=== PATIENT | female | born 1955 | race African-American/Black ===

== ENCOUNTER → 2016-04-15 | Day surgery (SDC) | payer OTHER | END | disposition home or self-care (01) | LOC: FMAMMOTONE 11:48 | PROVIDERS: ATTEND Surgery | PROC: 0HBU3ZX Excision of Left Breast, Percutaneous Approach, Diagnostic (ICD-10-PCS; principal; 2016-04-15) | DX: R92.1 Mammographic calcification found on diagnostic imaging of breast (principal); Z53.8 Procedure and treatment not carried out for other reasons | CPT/HCPCS: 19081 ==

== ENCOUNTER 2016-07-31 09:11 | Inpatient (IN) | payer OTHER ==
[2016-07-31 09:33] VITALS: BMI 17.9
--- NOTE | 2016-07-31 10:05 | HP ---
CIWA Score - CIWA Score Nausea/Vomitin-Mild Nausea/No Vomiting Muscle Tremors: 4-Moderate,w/Arms Extend Anxiety: 4-Mod. Anxious/Guarded Agitation: 1-Slight > Activity Paroxysmal Sweats: 1-Minimal Palms Moist Orientation: 1-Uncertain about Date Tacttile Disturbances: 1-Very Mild Itch/Numbness Auditory Disturbances: 1-Very Mild Visual Disturbances: 1-Very Mild Sensitivity Headache: 1-Very Mild CIWA-Ar Total Score: 16 Admission ROS BHS - HPI Chief Complaint: I want to stop, I can't stop on my own - I have too much shaking, I don't want that life anymore Allergies/Adverse Reactions: Allergies Allergy/AdvReac Type Severity Reaction Status Date / Time No Known Allergies Allergy Verified 01/17/16 13:07 History of Present Illness: 61 yo woman here for detox from alcohol - denies seizures but is shakey upon waking each morning. Last detox here in 2013, previous history of rehab. Exam Limitations: Clinical Condition - Ebola screening Have you traveled outside of the country in the last 21 days: No Have you had contact with anyone from an Ebola affected area: No Have you been sick,other than usual withdrawal symptoms: No Do you have a fever: No - Review of Systems Constitutional: Loss of Appetite, Night Sweats EENT: reports: No Symptoms Reported Respiratory: reports: No Symptoms reported Cardiac: reports: No Symptoms Reported GI: reports: Poor Appetite, Indigestion : reports: Frequency Musculoskeletal: reports: No Symptoms Reported Integumentary: reports: Dryness Neuro: reports: Headache, Tremors Endocrine: reports: No Symptoms Reported Hematology: reports: No Symptoms Reported Psychiatric: reports: Judgement Intact, Mood/Affect Appropiate, Anxious Other Systems: Reviewed and Negative Patient History - Patient Medical History Hx Anemia: Yes Hx Asthma: No Hx Chronic Obstructive Pulmonary Disease (COPD): No Hx Cancer: No Hx Cardiac Disorders: No Hx Congestive Heart Failure: No Hx Hypertension: No Hx Hypercholesterolemia: No Hx Pacemaker: No HX Cerebrovascular Accident: No Hx Seizures: No Hx Dementia: No Hx Diabetes: No Hx Gastrointestinal Disorders: Yes (gerd) Hx Liver Disease: Yes (fatty liver) Hx Genitourinary Disorders: No Hx Renal Disease (ESRD): No Hx Thyroid Disease: No Hx Human Immunodeficiency Virus (HIV): No Hx Hepatitis C: No Hx Depression: Yes (on meds) - Patient Surgical History Past Surgical History: Yes Hx Neurologic Surgery: No Hx Cataract Extraction: No Hx Cardiac Surgery: No Hx Lung Surgery: No Hx Breast Surgery: No Hx Breast Biopsy: No Hx Abdominal Surgery: Yes (exp lap) Hx Appendectomy: No Hx Cholecystectomy: No Hx Genitourinary Surgery: No Hx Section: No Hx Orthopedic Surgery: No Hx Hysterectomy: No Other Surgical History: nasal polyps removed 1989 Anesthesia Reaction: No - PPD History Previous Implant?: Yes Documented Results: Negative w/o proof Implanted On Prior [facility] Admission?: No PPD to be Administered?: Yes - Reproductive History Patient is a Female of Child Bearing Age (11 -55 yrs old): No - Smoking Cessation Smoking history: Current every day smoker Have you smoked in the past 12 months: Yes Aproximately how many cigarettes per day: 20 Initiated information on smoking cessation: Yes 'Breaking Loose' booklet given: 07/31/16 (give on floor) - Substance & Tx. History Hx Alcohol Use: Yes Hx Substance Use: No Substance Use Type: Alcohol Hx Substance Use Treatment: Yes (detox, rehab outpatient) - Substances Abused Alcohol Route: Oral Frequency: Daily Amount used: four 18 oz beers Age of first use: 15 Date of Last Use: 07/31/16 Family Disease History - Family Disease History Family Disease History: Heart Disease: Father ( - MS, etoh hx), Other: Father, Mother (, AIDS, drug user), Brother (one brother alive, healthy) , Sister (, AIDS, IVDU) Admission Physical Exam S - Vital Signs Vital Signs: Vital Signs - 24 hr 07/31/16 09:29 Temperature 97.1 F L Pulse Rate 91 H Respiratory 16 Rate Blood Pressure 126/79 - Physical General Appearance: Yes: Appropriately Dressed, Mild Distress, Thin HEENTM: Yes: Hearing grossly Normal, Normocephalic, Normal Voice, Pharynx Normal Respiratory: Yes: Normal Breath Sounds, No Respiratory Distress Neck: Yes: No masses,lesions,Nodules, Supple Breast: Yes: Breast Exam Deferred Cardiology: Yes: Regular Rhythm, Regular Rate Abdominal: Yes: Flat, Soft Genitourinary: Yes: Frequency Back: Yes: Normal Inspection Musculoskeletal: Yes: full range of Motion, Gait Steady Extremities: Yes: Normal Inspection, Normal Range of Motion Neurological: Yes: Alert, Normal Mood/Affect, Normal Response Integumentary: Yes: Normal Color, Dry, Warm Lymphatic: Yes: Within Normal Limits - Diagnostic (1) Alcohol dependence with uncomplicated withdrawal Current Visit: Yes Status: Chronic (2) GERD (gastroesophageal reflux disease) Current Visit: Yes Status: Chronic Qualifiers: Esophagitis presence: esophagitis presence not specified Qualified Code(s): K21.9 - Gastro-esophageal reflux disease without esophagitis (3) Weight decrease Current Visit: Yes Status: Chronic (4) Fatty liver Current Visit: Yes Status: Chronic Cleared for Admission [facility] - Detox or Rehab [facility] Level of Care: Medically Managed Detox Regimen/Protocol: Librium [facility] Breath Alcohol Content Breath Alcohol Content: 0.239 Urine Pregancy Test - Result Urine Test Results: Negative- NO Line Present Urine Drug Screen - Results Drug Screen Negative: Yes
[2016-07-31] MEDS ORDERED: MENTHOL/PHENOL 1 EACH UD MM PRN (10:17)
[2016-07-31] MEDS ORDERED: P-EPHED 60MG/TRIPROLIDI 2.5MG TABLET PO PRN (10:17)
[2016-07-31] MEDS ORDERED: ACETAMINOPHEN 325 MG TABLET (FP) PO PRN (10:17)
[2016-07-31] MEDS ORDERED: MAGNESIUM CITRATE 300 ML BOTTLE PO PRN (10:17)
[2016-07-31] MEDS ORDERED: IBUPROFEN 400 MG TABLET (FP) PO PRN (10:17)
[2016-07-31] MEDS ORDERED: MAG HYDROX/AL HYDROX/SIMETH 30 ML UNIT-DOSE CUP PO PRN (10:17)
[2016-07-31] MEDS ORDERED: chlordiazePOXIDE HCL 25 MG CAPSULE PO PRN (10:17)
[2016-07-31] MEDS ORDERED: chlordiazePOXIDE HCL 25 MG CAPSULE PO ONE (10:30)
[2016-07-31] MEDS ORDERED: guaiFENesin/D-METHORPHAN HB 10 ML UNIT-DOSE CUPS PO PRN (10:33)
[2016-07-31] MEDS ORDERED: hydrOXYzine PAMOATE 25 MG CAPSULE (FP) PO PRN (10:34)
[2016-07-31] MEDS ORDERED: MAGNESIUM HYDROX 2400MG/30ML ORAL SUSPENSION 30 ML CUP PO PRN (10:52)
[2016-07-31] MEDS: NICOTINE 21 MG/24 HOURS TOPICAL PATCH TD SCH (12:34)
[2016-07-31] MEDS: chlordiazePOXIDE HCL 25 MG CAPSULE PO SCH ×2 (17:36→22:11)
[2016-07-31 18:27] LABS: URINE APPEARANCE SLCLOUDY; URINE BILIRUBIN NEGATIVE (NEGATIVE); URINE COLOR AMBER; URINE GLUCOSE (UA) NEGATIVE (NEGATIVE); URINE KETONE NEGATIVE (NEGATIVE); URINE NITRITE NEGATIVE (NEGATIVE); URINE UROBILINOGEN 4.0 E.U/dl E.U./dl (0.2-1.0)
[2016-07-31 18:30] LABS: URINE BLOOD 1+ (NEGATIVE); URINE LEUK ESTERASE 2+ (NEGATIVE); URINE PROTEIN 1+ (NEGATIVE)
[2016-07-31 18:32] LABS: URINE BACTERIA RARE /hpf (NONE SEEN); URINE HYALINE CAST 29 /lpf; URINE MUCUS FEW; URINE RBC 3 /hpf (0-3); URINE WBC 28 /hpf (3-5)
--- NOTE | 2016-07-31 19:23 | EKG ---
Test Reason : Blood Pressure : / mmHG Vent. Rate : 082 BPM Atrial Rate : 082 BPM P-R Int : 140 ms QRS Dur : 082 ms QT Int : 416 ms P-R-T Axes : 071 057 066 degrees QTc Int : 486 ms NORMAL SINUS RHYTHM NORMAL ECG WHEN COMPARED WITH ECG OF 16-MAY-2011 12:15, NO SIGNIFICANT CHANGE WAS FOUND Confirmed by JENS VITAL MD ([id number]) on 07/31/2016 7:22:47 PM Referred By: Confirmed By:JENS VITAL MD
[2016-07-31] MEDS: THIAMINE HCL 100 MG TABLET (FP) PO SCH (22:11)
[2016-08-01] MEDS: chlordiazePOXIDE HCL 25 MG CAPSULE PO SCH ×4 (05:48→22:19)
[2016-08-01] MEDS: PRENATAL VITAMINS W/ FOLIC ACID TABLET (FP) PO SCH (10:15)
[2016-08-01] MEDS: PANTOPRAZOLE 40 MG TABLET (FP) PO SCH (10:16)
[2016-08-01] MEDS: NICOTINE 21 MG/24 HOURS TOPICAL PATCH TD SCH (10:16)
[2016-08-01 10:52] LABS: MCH 35.9 pg (25.7-33.7); MCHC 34.1 g/dl (32.0-36.0); MEAN CELL VOLUME 105.2 fl (80-96); MEAN PLT VOLUME 10.5 fl (7.5-11.1); PLATELET COUNT 192 K/MM3 (134-434); RDW 13.4 % (11.6-15.6); WHITE BLOOD COUNT 3.8 K/mm3 (4.0-10.0)
[2016-08-01 10:58] LABS: ALBUMIN 3.4 g/dl (3.4-5.0); ANION GAP 8 (8-16); CALCIUM 9.7 mg/dL (8.5-10.1); CO2 31 mmol/L (21-32); CREATININE 0.6 mg/dL (0.55-1.02); GLUCOSE,RANDOM 88 mg/dL (74-106); SGOT/AST 154 U/L (15-37); SGPT/ALT 56 U/L (12-78)
[2016-08-01 11:00] LABS: ALK PHOS 119 U/L (45-117); BILIRUBIN,TOTAL 1.1 mg/dL (0.2-1.0); TOT PROT 6.9 g/dl (6.4-8.2)
--- NOTE | 2016-08-01 11:16 | PN ---
[facility] CIWA - CIWA Score Nausea/Vomitin-No Nausea/No Vomiting Muscle Tremors: 4-Moderate,w/Arms Extend Anxiety: 3 Agitation: 3 Paroxysmal Sweats: 3 Orientation: 0-Oriented Tacttile Disturbances: 0-None Auditory Disturbances: 0-None Visual Disturbances: 0-None Headache: 0-None Present CIWA-Ar Total Score: 13 S Progress Note (SOAP) Subjective: Anxiety,tremors,sweating,interrupted sleep,restless Objective: 08/01/16 11:15 Vital Signs - 8 hr 08/01/16 08/01/16 08/01/16 03:30 06:00 09:46 Temperature 98.2 F 97.5 F L Pulse Rate 77 114 H Respiratory 18 16 18 Rate Blood Pressure 119/75 120/82 Laboratory Last Values WBC 3.8 K/mm3 (4.0-10.0) L 08/01/16 07:45 RBC 3.43 M/mm3 (3.60-5.2) L 08/01/16 07:45 Hgb 12.3 GM/dL (10.7-15.3) D 08/01/16 07:45 Hct 36.0 % (32.4-45.2) 08/01/16 07:45 MCV 105.2 fl (80-96) H 08/01/16 07:45 MCHC 34.1 g/dl (32.0-36.0) 08/01/16 07:45 RDW 13.4 % (11.6-15.6) 08/01/16 07:45 Plt Count 192 K/MM3 (134-434) 08/01/16 07:45 MPV 10.5 fl (7.5-11.1) 08/01/16 07:45 Sodium 139 mmol/L (136-145) 08/01/16 07:45 Potassium 3.7 mmol/L (3.5-5.1) 08/01/16 07:45 Chloride 100 mmol/L (98-107) 08/01/16 07:45 Carbon Dioxide 31 mmol/L (21-32) 08/01/16 07:45 Anion Gap 8 (8-16) 08/01/16 07:45 BUN 6 mg/dL (7-18) L 08/01/16 07:45 Creatinine 0.6 mg/dL (0.55-1.02) D 08/01/16 07:45 Creat Clearance w eGFR > 60 (>60) 08/01/16 07:45 Random Glucose 88 mg/dL (74-106) 08/01/16 07:45 Calcium 9.7 mg/dL (8.5-10.1) 08/01/16 07:45 Total Bilirubin 1.1 mg/dL (0.2-1.0) H D 08/01/16 07:45 AST 154 U/L (15-37) H D 08/01/16 07:45 ALT 56 U/L (12-78) D 08/01/16 07:45 Alkaline Phosphatase 119 U/L (45-117) H 08/01/16 07:45 Total Protein 6.9 g/dl (6.4-8.2) 08/01/16 07:45 Albumin 3.4 g/dl (3.4-5.0) 08/01/16 07:45 Urine Color Janice 07/31/16 17:55 Urine Appearance Slcloudy 07/31/16 17:55 Urine pH 5.0 (5.0-8.0) 07/31/16 17:55 Ur Specific [place] 1.025 (1.005-1.025) 07/31/16 17:55 Urine Protein 1+ (NEGATIVE) H 07/31/16 17:55 Urine Glucose (UA) Negative (NEGATIVE) 07/31/16 17:55 Urine Ketones Negative (NEGATIVE) 07/31/16 17:55 Urine Blood 1+ (NEGATIVE) H 07/31/16 17:55 Urine Nitrite Negative (NEGATIVE) 07/31/16 17:55 Urine Bilirubin Negative (NEGATIVE) 07/31/16 17:55 Urine Urobilinogen 4.0 e.u/dl E.U./dl (0.2-1.0) H 07/31/16 17:55 Ur Leukocyte Esterase 2+ (NEGATIVE) H 07/31/16 17:55 Urine RBC 3 /hpf (0-3) 07/31/16 17:55 Urine WBC 28 /hpf (3-5) 07/31/16 17:55 Ur Epithelial Cells Many /hpf (FEW) 07/31/16 17:55 Urine Bacteria Rare /hpf (NONE SEEN) 07/31/16 17:55 Hyaline Casts 29 /lpf 07/31/16 17:55 Urine Mucus Few 07/31/16 17:55 labs noted U/C&S ordered Assessment: 08/01/16 11:16 Withdrawal sx. Plan: Continue detox
[2016-08-01 12:10] LABS: ANISOCYTOSIS 2+; HYPOCHROMIA 2+; TARGET CELLS 2+
[2016-08-01] MEDS: LOPERAMIDE HCL 2 MG CAPSULE PO PRN ×2 (12:14→22:21)
[2016-08-01 12:47] LABS: SICKLE CELL SCREEN NEGATIVE (NEGATIVE)
[2016-08-01] MEDS ORDERED: NICOTINE POLACRILEX 2 MG GUM BUC PRN (18:25)
[2016-08-01] MEDS: THIAMINE HCL 100 MG TABLET (FP) PO SCH (22:19)
[2016-08-01] MEDS: diphenhydrAMINE HCL 50 MG CAPSULE PO PRN (22:20)
[2016-08-02] MEDS: chlordiazePOXIDE HCL 25 MG CAPSULE PO SCH ×2 (05:42→10:22)
--- NOTE | 2016-08-02 09:15 | PN ---
S CIWA - CIWA Score Nausea/Vomitin Muscle Tremors: 3 Anxiety: 2 Agitation: 2 Paroxysmal Sweats: 1-Minimal Palms Moist Orientation: 0-Oriented Tacttile Disturbances: 1-Very Mild Itch/Numbness Auditory Disturbances: 1-Very Mild Visual Disturbances: 1-Very Mild Sensitivity Headache: 2-Mild CIWA-Ar Total Score: 16 S Progress Note (SOAP) Subjective: ALERT,IRRITABLE,ANXIOUS,INTERRUPTED SLEEP,TREMOR Objective: 08/02/16 09:12 Vital Signs Temperature 97.9 F 08/02/16 06:34 Pulse Rate 81 08/02/16 06:34 Respiratory Rate 18 08/02/16 06:34 Blood Pressure 101/67 08/02/16 06:34 O2 Sat by Pulse Oximetry (%) Laboratory Last Values WBC 3.8 K/mm3 (4.0-10.0) L 08/01/16 07:45 RBC 3.43 M/mm3 (3.60-5.2) L 08/01/16 07:45 Hgb 12.3 GM/dL (10.7-15.3) D 08/01/16 07:45 Hct 36.0 % (32.4-45.2) 08/01/16 07:45 MCV 105.2 fl (80-96) H 08/01/16 07:45 MCHC 34.1 g/dl (32.0-36.0) 08/01/16 07:45 RDW 13.4 % (11.6-15.6) 08/01/16 07:45 Plt Count 192 K/MM3 (134-434) 08/01/16 07:45 MPV 10.5 fl (7.5-11.1) 08/01/16 07:45 Hypochromic-Microcytic 2+ 08/01/16 07:45 Anisocytosis 2+ 08/01/16 07:45 Macrocytosis 1+ 08/01/16 07:45 Target Cells 2+ 08/01/16 07:45 Sickle Cell Screen Negative (NEGATIVE) 08/01/16 07:45 Sodium 139 mmol/L (136-145) 08/01/16 07:45 Potassium 3.7 mmol/L (3.5-5.1) 08/01/16 07:45 Chloride 100 mmol/L (98-107) 08/01/16 07:45 Carbon Dioxide 31 mmol/L (21-32) 08/01/16 07:45 Anion Gap 8 (8-16) 08/01/16 07:45 BUN 6 mg/dL (7-18) L 08/01/16 07:45 Creatinine 0.6 mg/dL (0.55-1.02) D 08/01/16 07:45 Creat Clearance w eGFR > 60 (>60) 08/01/16 07:45 Random Glucose 88 mg/dL (74-106) 08/01/16 07:45 Calcium 9.7 mg/dL (8.5-10.1) 08/01/16 07:45 Total Bilirubin 1.1 mg/dL (0.2-1.0) H D 08/01/16 07:45 AST 154 U/L (15-37) H D 08/01/16 07:45 ALT 56 U/L (12-78) D 08/01/16 07:45 Alkaline Phosphatase 119 U/L (45-117) H 08/01/16 07:45 Total Protein 6.9 g/dl (6.4-8.2) 08/01/16 07:45 Albumin 3.4 g/dl (3.4-5.0) 08/01/16 07:45 Urine Color Janice 07/31/16 17:55 Urine Appearance Slcloudy 07/31/16 17:55 Urine pH 5.0 (5.0-8.0) 07/31/16 17:55 Ur Specific [place] 1.025 (1.005-1.025) 07/31/16 17:55 Urine Protein 1+ (NEGATIVE) H 07/31/16 17:55 Urine Glucose (UA) Negative (NEGATIVE) 07/31/16 17:55 Urine Ketones Negative (NEGATIVE) 07/31/16 17:55 Urine Blood 1+ (NEGATIVE) H 07/31/16 17:55 Urine Nitrite Negative (NEGATIVE) 07/31/16 17:55 Urine Bilirubin Negative (NEGATIVE) 07/31/16 17:55 Urine Urobilinogen 4.0 e.u/dl E.U./dl (0.2-1.0) H 07/31/16 17:55 Ur Leukocyte Esterase 2+ (NEGATIVE) H 07/31/16 17:55 Urine RBC 3 /hpf (0-3) 07/31/16 17:55 Urine WBC 28 /hpf (3-5) 07/31/16 17:55 Ur Epithelial Cells Many /hpf (FEW) 07/31/16 17:55 Urine Bacteria Rare /hpf (NONE SEEN) 07/31/16 17:55 Hyaline Casts 29 /lpf 07/31/16 17:55 Urine Mucus Few 07/31/16 17:55 RPR Titer Nonreactive (NONREACTIVE) 08/01/16 07:45 Assessment: 08/02/16 09:13 WITHDRAWAL SYMPTOM Plan: CONTINUE DETOX,REPEAT UA,D/C TYLENOL FOR ELEVATION OF AST
[2016-08-02] MEDS: PRENATAL VITAMINS W/ FOLIC ACID TABLET (FP) PO SCH (10:22)
[2016-08-02] MEDS: NICOTINE 21 MG/24 HOURS TOPICAL PATCH TD SCH (10:22)
[2016-08-02] MEDS: PANTOPRAZOLE 40 MG TABLET (FP) PO SCH (10:22)
[2016-08-02] MEDS: FLUoxetine HCL 20 MG CAPSULE (FP) PO SCH (10:22)
--- NOTE | 2016-08-02 11:21 | CONSULT ---
[facility] Psychiatric Consult - Data Date of interview: 08/02/16 Admission source: [facility] Identifying data: This is 61 years old female with no psychiatric hospitalization history intoxicated with: Alcohol and Nicotine Substance Abuse History: - Smoking Cessation. Smoking history: Current every day smoker. Have you smoked in the past 12 months: Yes. Aproximately how many cigarettes per day: 20. Initiated information on smoking cessation: Yes. ' Breaking Loose' booklet given: 07/31/16 (give on floor). - Substance & Tx. History. Hx Alcohol Use: Yes. Hx Substance Use: No. Substance Use Type: Alcohol. Hx Substance Use Treatment: Yes (detox, rehab outpatient). - Substances Abused. Alcohol. Route: Oral. Frequency: Daily. Amount used: four 18 oz beers. Age of first use: 15. Date of Last Use: 07/31/16 Medical History: Fatty Liver, GERD, Weight loss Psychiatric History: Patient reports history of depression, reports taking prior to admission: Prozac 20mg poqd Physical/Sexual Abuse/Trauma History: Denies Additional Comment: Prozac 20mg poqd Mental Status Exam - Mental Status Exam Alert and Oriented to: Person Cognitive Function: Fair Patient Appearance: Unkempt Mood: Sad Affect: Flat Patient Behavior: Sedated Speech Pattern: Delayed Voice Loudness: Mildly Soft/Quiet Thought Process: Goal Oriented Thought Disorder: Being Controlled Hallucinations: Denies Suicidal Ideation: Denies Homicidal Ideation: Denies Insight/Judgement: Fair Sleep: Difficulty falling asleep Appetite: Weight loss Muscle strength/Tone: Mild Hypotonicity Gait/Station: Normal Additional Comments: Prozac 20mg poqd Psychiatric Findings - Problem List ([place] 1, 2,3) (1) Alcohol dependence with uncomplicated withdrawal Current Visit: Yes Status: Chronic (2) Weight decrease Current Visit: Yes Status: Chronic (3) Nicotine dependence Current Visit: Yes Status: Acute (4) Drug-induced mood disorder Current Visit: Yes Status: Acute - Initial Treatment Plan Initial Treatment Plan: Prozac 20mg poqd
[2016-08-02] MEDS: chlordiazePOXIDE 5 MG CAPSULE PO SCH ×2 (17:39→22:09)
[2016-08-02] MEDS: THIAMINE HCL 100 MG TABLET (FP) PO SCH (22:09)
[2016-08-03] MEDS: chlordiazePOXIDE 5 MG CAPSULE PO SCH ×2 (05:22→10:29)
[2016-08-03] MEDS: PANTOPRAZOLE 40 MG TABLET (FP) PO SCH (10:29)
[2016-08-03] MEDS: NICOTINE 21 MG/24 HOURS TOPICAL PATCH TD SCH (10:29)
[2016-08-03] MEDS: FLUoxetine HCL 20 MG CAPSULE (FP) PO SCH (10:29)
[2016-08-03] MEDS: PRENATAL VITAMINS W/ FOLIC ACID TABLET (FP) PO SCH (10:29)
--- NOTE | 2016-08-03 10:41 | PN ---
S Progress Note (SOAP) Subjective: ALERT,IRRITABLE,INTERRUPTED SLEEP Objective: 08/03/16 10:38 Vital Signs Temperature 98.5 F 08/03/16 10:30 Pulse Rate 102 H 08/03/16 10:30 Respiratory Rate 16 08/03/16 10:30 Blood Pressure 100/70 08/03/16 10:30 O2 Sat by Pulse Oximetry (%) Assessment: 08/03/16 10:39 WITHDRAWAL SYMPTOM URINE FOR C/S SHOWED LACTOSE FERMENTING GRAM NEGATIVE BACILLI Plan: CONTINUE DETOX,START ON BACTRIM DS 1 TAB PO BID FOR 7 DAYS FOR UTI
[2016-08-03] MEDS: SULFAMETHOXAZOLE/TRIMETHOPRIM 800MG/160MG D.S. TABLET PO SCH ×2 (12:00→22:19)
[2016-08-03 14:45] LABS: URINE APPEARANCE CLEAR; URINE BILIRUBIN NEGATIVE (NEGATIVE); URINE BLOOD NEGATIVE (NEGATIVE); URINE COLOR YELLOW; URINE GLUCOSE (UA) NEGATIVE (NEGATIVE); URINE KETONE NEGATIVE (NEGATIVE); URINE NITRITE NEGATIVE (NEGATIVE); URINE PROTEIN NEGATIVE (NEGATIVE); URINE UROBILINOGEN NEGATIVE E.U./dl (0.2-1.0)
[2016-08-03 14:57] LABS: URINE LEUK ESTERASE 1+ (NEGATIVE)
[2016-08-03 15:51] LABS: URINE MUCUS RARE; URINE RBC <1 /hpf (0-3); URINE WBC 7 /hpf (3-5)
[2016-08-03] MEDS: chlordiazePOXIDE HCL 10 MG CAPSULE PO SCH ×2 (17:41→22:19)
[2016-08-03] MEDS: THIAMINE HCL 100 MG TABLET (FP) PO SCH (22:19)
[2016-08-03] MEDS: diphenhydrAMINE HCL 50 MG CAPSULE PO PRN (22:20)
[2016-08-04] MEDS: chlordiazePOXIDE HCL 10 MG CAPSULE PO SCH ×2 (05:28→10:25)
--- NOTE | 2016-08-04 08:39 | PN ---
S Progress Note (SOAP) Subjective: ALERT,NO COMPLAINT Objective: 08/04/16 08:38 Vital Signs Temperature 97.9 F 08/04/16 06:00 Pulse Rate 80 08/04/16 06:00 Respiratory Rate 16 08/04/16 06:00 Blood Pressure 108/62 08/04/16 06:00 O2 Sat by Pulse Oximetry (%) Assessment: 08/04/16 08:38 DETOX COMPLETED,NO WITHDRAWAL SYMPTOM Plan: DISCHARGE TODAY,FOLLOW UP WITH AFTER CARE PROGRAM ARRANGEMENT AND PMD FOR MEDICAL PROBLEM
--- NOTE | 2016-08-04 08:43 | DS ---
[facility] Detox Discharge Summary Admission Date: 07/31/16 Discharge Date: 08/04/16 - History Present History: Alcohol Dependence Additional Comments: FOLLOW UP WITH AFTER [facility] PROGRAM ARRANGEMENT AND PMD FOR MEDICAL PROBLEM Pertinent Past History: GERD WEIGHT LOSS - Physical Exam Results Vital Signs: Vital Signs Temperature 97.9 F 08/04/16 06:00 Pulse Rate 80 08/04/16 06:00 Respiratory Rate 16 08/04/16 06:00 Blood Pressure 108/62 08/04/16 06:00 O2 Sat by Pulse Oximetry (%) Pertinent Admission Physical Exam Findings: WITHDRAWAL SYMPTOM - Treatment Hospital Course: Detox Protocol Followed, Detoxed Safely, Responded well, Discharged Condition Good Patient has Accepted a Rehab Referral to: DECLINED - Medication Discharge Medications: Ambulatory Orders Fluoxetine HCl [Prozac -] 20 mg PO DAILY 07/31/16 Omeprazole 20 mg PO DAILY 07/31/16 Fluoxetine HCl [Prozac -] 20 mg PO DAILY #30 cap 08/02/16 - Diagnosis (1) Nicotine dependence Current Visit: Yes Status: Acute (2) Alcohol dependence with uncomplicated withdrawal Current Visit: Yes Status: Chronic (3) GERD (gastroesophageal reflux disease) Current Visit: Yes Status: Chronic Qualifiers: Esophagitis presence: esophagitis presence not specified Qualified Code(s): K21.9 - Gastro-esophageal reflux disease without esophagitis (4) Weight decrease Current Visit: Yes Status: Chronic (5) UTI (urinary tract infection) Current Visit: Yes Status: Acute - AMA Did Patient Leave Against Medical Advice: No
[2016-08-04 10:02] VITALS: BP 101/65; PULSE 108; TEMP 98.9
[2016-08-04] MEDS: FLUoxetine HCL 20 MG CAPSULE (FP) PO SCH (10:24)
[2016-08-04] MEDS: PRENATAL VITAMINS W/ FOLIC ACID TABLET (FP) PO SCH (10:24)
[2016-08-04] MEDS: PANTOPRAZOLE 40 MG TABLET (FP) PO SCH (10:24)
[2016-08-04] MEDS: SULFAMETHOXAZOLE/TRIMETHOPRIM 800MG/160MG D.S. TABLET PO SCH (10:24)
[2016-08-04] MEDS: NICOTINE 21 MG/24 HOURS TOPICAL PATCH TD SCH (10:25)
== END 2016-08-04 10:28 | disposition home or self-care (01) | DRG 897 ==
LOC: YASAS 09:11 → Y6N 10:18
PROVIDERS: ADMIT Internal Medicine; ATTEND Internal Medicine
PROC: HZ2ZZZZ Detoxification Services for Substance Abuse Treatment (ICD-10-PCS; principal; 2016-08-04)
DX: F10.230 Alcohol dependence with withdrawal, uncomplicated (principal); N39.0 Urinary tract infection, site not specified; Z68.1 Body mass index [BMI] 19.9 or less, adult; F17.210 Nicotine dependence, cigarettes, uncomplicated; K21.9 Gastro-esophageal reflux disease without esophagitis; R63.4 Abnormal weight loss; F19.24 Other psychoactive substance dependence with psychoactive substance-induced mood disorder; K76.0 Fatty (change of) liver, not elsewhere classified
CPT/HCPCS: 36415; 80053; 81003; 81015; 85027; 85660; 86593; 87086; 87186; 93005; 93010

== ENCOUNTER 2018-01-20 17:22 | Inpatient (IN) | payer OTHER ==
--- NOTE | 2018-01-20 17:45 | PDOC ---
Rapid Medical Evaluation Medical Evaluation: Allergies Allergy/AdvReac Type Severity Reaction Status Date / Time No Known Allergies Allergy Verified 01/17/16 13:07 I have performed a brief in-person evaluation of this patient. The patient presents with a chief complaint of: Loss of appetite x 2 months along with weight loss; also w/ LLQ abdominal pain x 1 month Mentions spitting up frequently +Watery diarrhea intermittently x 1 month Denies fever, sob, cp, vomiting, dysuria, hematuria Had exlap years ago; denies other surgeries Has been trying to see PCP but unable to get appt; has appt with new PCP in February] On PE, patient appears thin, comfortable, slightly distended abdomen, no firmness, mild TTP along LLQ, no rebounding or guarding I have ordered the following: CBC, CMP, UA, Magnesium, IVF The patient will proceed to the ED for further evaluation. 01/20/18 17:41
[2018-01-20] MEDS ORDERED: SODIUM CHLORIDE 1,000 ML IV STA ×2 (17:49→21:48)
[2018-01-20 18:13] LABS: BASO % 0.8 % (0-2.0); EOS % 0.5 % (0-4.5); HEMATOCRIT 27.9 % (32.4-45.2); LYMPH % 20.1 % (8-40); MCH 36.5 pg (25.7-33.7); MCHC 35.8 g/dl (32.0-36.0); MEAN CELL VOLUME 101.8 fl (80-96); MEAN PLT VOLUME 9.1 fl (7.5-11.1); MONO % 12.4 % (3.8-10.2); NEUT % 66.2 % (42.8-82.8); PLATELET COUNT 233 K/MM3 (134-434); RBC 2.74 M/mm3 (3.60-5.2); RDW 16.6 % (11.6-15.6); WHITE BLOOD COUNT 9.3 K/mm3 (4.0-10.0)
--- NOTE | 2018-01-20 18:40 | PDOC ---
Attending Attestation - HPI HPI: 01/20/18 21:27 The patient is a 62 year old female, with a significant past medical history of GERD and former alcohol abuse (6 months reportedly sober), who presents to the emergency department with, decreased PO intake, 40lb weight loss, and LLQ pain. Patient endorses his abdominal pain onsets after eating, nausea, and vomiting. Patient notes her abdomen has become distended and she has had mucus-like bowel movements. Allergies: NKA Social history: Former alcoholic. Primary Care Physician: Jayesh Noel - Physicial Exam PE: 01/20/18 21:33 Constitutional: Awake, alert, oriented. No acute distress. Head: Normocephalic. Atraumatic Eyes: PERRL. EOMI. Conjunctivae are not pale. ENT: Mucous membranes are moist and intact. Posterior pharynx without exudates or erythema. Uvula midline. Neck: Supple. Full ROM. No lymphadenopathy. Cardiovascular: Regular rate. Regular rhythm. S1, S2 regular. Distal pulses are 2+ and symmetric. +Pulmonary/Chest: Diminished at bases. +Abdominal: Distended. Diffuse left quadrant tenderness. Palpable spleen. No rebound, guarding or rigidity. Back: No CVA tenderness. Musculoskeletal: No edema. No cyanosis. No clubbing. Full range of motion in all extremities. No calf tenderness. Radial/pedal pulses are intact and 2+ bilaterally Skin: Skin is warm and dry. No petechiae. No purpura. Neurological: Alert and oriented to person, place, and time. Cranial nerves II -XII are grossly intact. Normal speech. Strength is grossly symmetric. No sensory deficits. Psychiatric: Good eye contact. Normal interaction, affect and behavior. <Mahesh Reeves - Last Filed: 01/20/18 21:27> - Resident Resident Name: Katie Che - ED Attending Attestation I have performed the following: I have examined & evaluated the patient, The case was reviewed & discussed with the resident, I agree w/resident's findings & plan, Exceptions are as noted - Medical Decision Making 01/20/18 18:40 I, Dr. Evelin Sauceda, DO, attest that this document has been prepared under my direction and personally reviewed by me in its entirety. I further attest, that it accurately reflects all work, treatment, procedures and medical decision -making performed by me. 01/20/18 19:43 a/p: 62yo female with 40lb wt loss over the last few months -abd feels larger than normal -mucous stool -denies blood -vomiting with eating and LLQ pain with eating -concern for intraabd pathology -will send labs, ekg, cxr, ct abd/pelvis -will most likely need admission 01/20/18 20:51 magnesium and potassium low, will replace ivf hydration running pt to ct scan 01/20/18 22:32 pt with distended gallbladder thickening at cecum to ascending colon poss neoplastic process to liver will admit for further workup microblog sent to [facility] electrolyte abnl, colonic thickening, abnl liver function tests and abnl liver on imaging <Evelin Sauceda - Last Filed: 01/20/18 22:36> Heart Score/ECG Review - ECG Intrepretation Comment:: 01/20/18 22:35 sinus tach at 105, q waves septally, baseline artifact, mild st depression lateral leads, abnl ekg <Evelin Sauceda - Last Filed: 01/20/18 22:36> Attestations - Attestations 01/20/18 21:34 Documentation prepared by Mahesh Reeves, acting as medical supervisor for Evelin Sauceda DO. <Mahesh Reeves - Last Filed: 01/20/18 21:27>
[2018-01-20 18:43] LABS: ALBUMIN 2.2 g/dl (3.4-5.0); ALK PHOS 200 U/L (45-117); ANION GAP 11 MMOL/L (8-16); BILIRUBIN,TOTAL 2.7 mg/dL (0.2-1); CHLORIDE 93 mmol/L (98-107); CO2 30 mmol/L (21-32); CREATININE 0.6 mg/dL (0.55-1.3); GLUCOSE,RANDOM 165 mg/dL (74-106); MAGNESIUM 1.5 mg/dL (1.8-2.4); POTASSIUM 3.1 mmol/L (3.5-5.1); SGOT/AST 158 U/L (15-37); SGPT/ALT 30 U/L (13-61); SODIUM 134 mmol/L (136-145)
--- NOTE | 2018-01-20 18:44 | PDOC ---
History of Present Illness - General Chief Complaint: Pain, Acute Stated Complaint: STOMACH PAIN Time Seen by Provider: 01/20/18 18:40 History Source: Patient Exam Limitations: No Limitations - History of Present Illness Initial Comments: Pt is a 62 yo F, with PMH of GERD (controlled with omeprazole) and past alcohol abuse (~1 year sober from detox), who is presenting with 40 lbs weight loss x2 months, weakness/"buckling of her legs", LLQ abdominal pain, and decreased PO food intake. Pt states starting 2-3 months ago, she ran out of her omeprazole pills for acid reflux. After that time, the pt was unable to tolerate any oral intake, including Boost, as she would have NBNB vomiting, loose stools, and regurgitation of her food. She was also having LLQ abdominal pain which is exacerbated by food intake, but has been constant other than during sleep. She denies any sticking sensation in her throat/bolus or trouble swallowing. Pt has been tolerating dany-shabnam only, with extremely limited PO food intake (a few tablespoons of soft food per day). She is urinating without difficulty, but has been producing no BMs, only clear mucus over the past month. Pt denies any fevers/chills, headache, vision changes, chest pain, palpitations, SOB, urinary symptoms, or leg swelling. Pt smokes 1/3 ppd, but denies any current alcohol or drug use. Pt denies any recent travel or sick contacts. 01/20/18 21:59 Past History - Travel Traveled outside of the country in the last 30 days: No Close contact w/someone who was outside of country & ill: No - Past Medical History Allergies/Adverse Reactions: Allergies Allergy/AdvReac Type Severity Reaction Status Date / Time No Known Allergies Allergy Verified 01/20/18 17:41 Anemia: Yes Asthma: No Cancer: No Cardiac Disorders: No CVA: No COPD: No CHF: No Dementia: No Diabetes: No GI Disorders: Yes (gerd) Disorders: No HTN: No Hypercholesterolemia: No Kidney Stones: No Liver Disease: Yes (fatty liver) Seizures: No Thyroid Disease: No Other medical history: alcohol abuse - Surgical History Abdominal Surgery: Yes (exp lap) Appendectomy: No Cardiac Surgery: No Cholecystectomy: No Lung Surgery: No Neurologic Surgery: No Orthopedic Surgery: No - Suicide/Smoking/Psychosocial Hx Smoking Status: Yes Smoking History: Current every day smoker Have you smoked in the past 12 months: Yes Number of Cigarettes Smoked Daily: 20 Information on smoking cessation initiated: No 'Breaking Loose' booklet given: 07/31/16 Hx Alcohol Use: Yes Drug/Substance Use Hx: No Substance Use Type: Alcohol Hx Substance Use Treatment: Yes (detox, rehab outpatient) Review of Systems - Review of Systems Able to Perform ROS?: Yes Is the patient limited Maori proficient: No Constitutional: Yes: Loss of Appetite, Malaise, Weakness, Unintentional Wgt. Loss, Unexplained wgt Loss. No: Chills, Diaphoresis, Fever, Night Sweats, Weight Stable HEENTM: No: Blurred Vision, Double Vision, Nose Pain, Nose Congestion, Throat Pain, Difficulty Swallowing Respiratory: No: Cough, Orthopnea, Shortness of Breath Cardiac (ROS): Yes: Lightheadedness. No: Chest Pain, Edema, Irregular Heart Rate, Palpitations, Syncope, Chest Tightness ABD/GI: Yes: Abdominal Distended, Diarrhea, Poor Appetite, Vomiting, Abdominal cramping (LLQ pain). No: Constipated, Difficulty Swallowing, Nausea, Poor Fluid Intake : No: Burning, Dysuria, Frequency, Flank Pain, Hematuria, Pain, Urgency Musculoskeletal: Yes: Muscle Weakness ("feeling like legs buckling" see HPI). No: Back Pain, Joint Pain, Joint Swelling, Muscle Pain Integumentary: No: Bruising, Rash Neurological: Yes: Weakness. No: Headache, Numbness, Seizure, Unsteady Gait, Ataxia, Dizziness Psychiatric: Yes: Change in Appetite. No: Sleep Pattern Change Endocrine: Yes: Unexplained Weight Loss. No: Increased Urine, Change in Weight Hematologic/Lymphatic: No: Anemia, Blood Clots, Easy Bleeding, Easy Bruising All Other Systems: Reviewed and Negative *Physical Exam - Vital Signs Last Vital Signs Temp Pulse Resp BP Pulse Ox 98.6 F 119 H 22 H 118/65 96 01/20/18 17:42 01/20/18 17:42 01/20/18 17:42 01/20/18 17:42 01/20/18 17:42 - Physical Exam General Appearance: Yes: Nourished, Appropriately Dressed, Moderate Distress ( Pt able to lie flat, but appears uncomfortably, tachypneic and tachycardic), Cachetic HEENT: positive: EOMI, SHANNA, Normal Voice, Symmetrical, Pharynx Normal, Scleral Icterus (R), Scleral Icterus (L), Hearing Grossly Normal. negative: Normal ENT Inspection, Muffled/Hoarse voice, Pharyngeal Erythema, Tonsillar Exudate, Tonsillar Erythema, Nasal Congestion, Rhinorrhea, Thrush Neck: positive: Trachea midline, Normal Thyroid, Supple. negative: Tender, Rigid, Lymphadenopathy (R), Lymphadenopathy (L), Rigidity Respiratory/Chest: positive: Lungs Clear, Normal Breath Sounds. negative: Chest Tender, Respiratory Distress, Accessory Muscle Use, Crackles, Wheezing Cardiovascular: positive: Regular Rhythm, Tachycardia. negative: Regular Rate, Edema, JVD, Murmur Vascular Pulses: Carotid (R): 4+, Carotid (L): 4+ Gastrointestinal/Abdominal: positive: Normal Bowel Sounds, Tender (diffuse left- sided abdominal tenderness, no rebound or guarding.), Soft, Organomegaly (liver and spleen palpated (megaly vs body habitus)), Distended, Hepatomegaly, Spleenomegaly. negative: Flat, Pulsatile Mass, Guarding, Rebound Rectal Exam: positive: deferred Lymphatic: negative: Adenopathy, Tenderness Musculoskeletal: positive: Normal Inspection. negative: CVA Tenderness Extremity: positive: Normal Capillary Refill, Normal Inspection, Normal Range of Motion, Pelvis Stable. negative: Tender, Pedal Edema, Calf Tenderness, Erythema Integumentary: positive: Normal Color, Dry, Warm. negative: Jaundice, Clammy, Diaphoresis, Petechiae, Rash, Ecchymosis Neurologic: positive: staff antisubmarine officer II-XII NML intact, Fully Oriented, Alert, Normal Mood/ Affect, Normal Response, Motor Strength 5/5 ED Treatment Course - LABORATORY CBC & Chemistry Diagram: 01/20/18 18:09 01/20/18 18:09 - ADDITIONAL ORDERS Additional order review: 01/20/18 18:09 RBC 2.74 L MCV 101.8 H MCHC 35.8 RDW 16.6 H MPV 9.1 D Neutrophils % 66.2 D Lymphocytes % 20.1 D Monocytes % 12.4 H Eosinophils % 0.5 Basophils % 0.8 Medical Decision Making - Medical Decision Making Pt was seen at bedside, also will be seen by attending Dr. Sauceda. Pt presenting with 40 lbs weight loss x2 months, LLQ abdominal pain, and decreased PO food intake. Pt states starting 2-3 months ago, she ran out of her omeprazole pills for acid reflux. After that time, the pt was unable to tolerate any oral intake, including Boost, as she would have NBNB vomiting, loose stools, and regurgitation of her food. She was also having LLQ abdominal pain which is exacerbated by food intake, but has been constant other than during sleep. She denies any sticking sensation in her throat/bolus or trouble swallowing. Pt has been tolerating dany-shabnam only, with extremely limited PO food intake (a few tablespoons of soft food per day). She is urinating without difficulty, but has been producing no BMs, only clear mucus over the past month. Pt denies any fevers/chills, headache, vision changes, chest pain, palpitations, SOB, urinary symptoms, or leg swelling. PE showed mild scleral icterus, with distended abdomen and mild left abdominal tenderness to palpation. Liver and spleen palpated due to pt small body habitus , unable to differentiate from organomegaly. Heart and lung sounds clear. Considering obstructive mass in gallbladder, colon, or ovaries (TBIL and AST elevated) with electrolyte abnormalities 2/2 to starvation (low K, low Mg, hyperglycemia), vs diverticulitis/colitis vs uncontrolled GERD/stricture Ordered work-up including CBC, CMP, Mg, Phos, coags, ammonia, troponin, UA, urine culture, troponin, ECG, and imaging including CT abd/pelvis with IV contrast, gallbladder US, and chest x-ray. Provided 1 L NS, 1 banana bag, 40 mg PO potassium, and 1 gm IV Mag for improvement of electrolyte abnormalities and likely starvation/avoid re-feeding syndrome. Will continue to reassess pt and monitor for symptomatic improvement. 01/20/18 19:34 CBC shows mild anemia (H/H 10.0/27.9). CMP: K 3.1, BUN 1, glucose 165, Mg 1.5, AST 158, Tbil 2.7, AlkP 200 Ordered additional coags, ammonia, alcohol, and troponin. Pt taken to CT scan and US. Additional labs sent by nursing staff. 01/20/18 19:51 Coags: elevated, INR 1.67 Ammonia: elevated, 52 Troponin <.02 Alcohol negative. Pt currently in CT and US for imaging. 01/20/18 20:29 Called lab team multiple times for phosphorous, they will update labs. 01/20/18 21:06 UA: 2+ protein, +bilirubin, 1+ leuk esterase, WBC 11, RBC 2. No urinary symptoms at this time. Phos 2.8 01/20/18 21:52 Chest x-ray appears clear, awaiting official reads of imaging. 01/20/18 21:57 [id number] CT/ABDOMEN & PELVIS CT WITH CONTR Abdomen and pelvis CT (with contrast) Clinical information: weight loss, left lower quadrant pain; evaluate for mass, obstruction Multiplanar imaging was performed following the intravenous administration of nonionic contrast. As requested enteric contrast was not administered. In comparison to a prior CT exam of 07/23/2016 interval development of a moderate amount of free intraperitoneal fluid is seen within the pelvis. There is also a very small amount of perihepatic free fluid and trace free fluid within the right paracolic space. There also appears to be interval development of submucosal edema along the cecum as well as the ascending colon and hepatic flexure to the level of the mid transverse colon. No gross noncontrast small bowel pathology is noted. Interval development of a patchy appearance is seen involving the left and right hepatic lobes. Note is again made of underlying diffuse fatty infiltration of the liver. Focal hypodensity has developed within the segment I with apparent mild partial effacement of the traversing segment of the inferior vena cava. Cholelithiasis is again noted. The gallbladder demonstrates mild nonspecific gallbladder overdistention. Gallbladder wall thickness appears borderline. A trace amount of nonspecific pericholecystic fluid is seen. There is no definite biliary tract dilatation. No evidence of pneumoperitoneum or bowel obstruction. The spleen, pancreas, adrenal glands and left kidney demonstrate no discrete abnormality. There is no aortic aneurysm. Note is again made of a nonobstructing 0.3 cm right renal calyceal calculus. No CT evidence of acute diverticulitis or appendicitis. There is no definite lymphadenopathy on the basis of CT size criteria. No adnexal pathology is identified. Small calcified uterine leiomyomas are noted. The urinary bladder is collapsed and cannot be evaluated due to lack of intraluminal fluid. The osseous structures demonstrate no gross evidence of acute pathology or neoplastic disease. diminished subcutaneous fat is noted since the previous exam. Impression: In comparison to a prior CT exam of 07/23/2016 interval development of a moderate amount of free fluid is noted within the pelvis. There is a small amount of free fluid within the upper abdomen. Interval development of a diffusely patchy appearance is noted involving the liver which may be on the basis of neoplastic disease and probably less likely infection/ inflammation. Focal hypodensity with associated mild mass affect has developed within the caudate lobe of the liver. There is underlying fatty infiltration of the liver diffusely. Additional evaluation utilizing multiphase contrast-enhanced MRI may be considered. Apparent interval development of submucosal edema is seen along the length of the cecum, ascending colon, hepatic flexure and proximal transverse colon - ? colitis. Cholelithiasis is noted. There is mild nonspecific gallbladder overdistention. Gallbladder wall thickness appears borderline. A trace amount of pericholecystic fluid is seen. If there is clinical concern for possible acute cholecystitis additional evaluation utilizing a radionuclide HIDA scan may be performed. Note is again made of a nonobstructing 0.3 cm right renal calculus. [id number] US/ABDOMEN US -LIMITED Right upper quadrant abdomen ultrasound Clinical information: AST elevated, weight loss, eval for mass A small amount of perihepatic ascites has developed in comparison to a prior ultrasound study of 09/29/2016. Interval development of a subtle heterogeneous hepatic echotexture is noted diffusely. No obvious focal mass lesion is identified. As on the prior study there is underlying diffuse fatty infiltration of the liver. Cholelithiasis is again noted. A small amount of inspissated/bile is seen layering along the posterior gallbladder wall. Development of mild gallbladder overdistention is noted as well as development of minimal to mild diffuse gallbladder wall thickening. A trace amount of nonspecific pericholecystic fluid is seen. The common bile duct diameter appears unremarkable measuring 0.5 cm. No gross intraductal calculus is verified. There is no right hydronephrosis. The right kidney demonstrates no definite sonographic abnormality. A 0.3 cm nonobstructing right renal calyceal calculus identified on CT performed the same date cannot be definitely appreciated on the current study. Impression: In comparison to a previous ultrasound exam of 09/29/2016 interval development of a small amount of perihepatic free fluid is noted. Development of a subtle heterogeneous hepatic echotexture is seen diffusely which is nonspecific possibly on the basis of neoplastic infiltration (versus inflammation/infection). Correlate clinically. As on the prior study there is underlying diffuse fatty infiltration of the liver. Cholelithiasis is noted. There is nonspecific gallbladder overdistention with minimal to mild diffuse wall thickening. Trace pericholecystic fluid is seen. If there is clinical concern for possible acute cholecystitis additional evaluation utilizing a radionuclide HIDA scan may be performed. No definite biliary tract dilatation is identified. ECG showed diffusely flattened T waves, no ST segment elevations. HR 105, narrow QRS, QTc 652 Hospitalist team was paged for admission. 01/20/18 22:15 Nudging hospitalist team, as no response yet. 01/20/18 22:47 Hospitalist team at bedside to see pt, admission order changed. Pending bed upstairs, banana bag is running and pt lying comfortably. Providing 15 mg IV toradol for pt discomfort. 01/20/18 23:14 *DC/Admit/Observation/Transfer Diagnosis at time of Disposition: Weakness, Elevated transaminase level, Weight loss of more than 10% body weight Malnutrition Qualifiers: Malnutrition type: unspecified type Qualified Code(s): E46 - Unspecified protein-calorie malnutrition GERD (gastroesophageal reflux disease) Qualifiers: Esophagitis presence: esophagitis presence not specified Qualified Code(s): K21.9 - Gastro-esophageal reflux disease without esophagitis - Discharge Dispostion Condition at time of disposition: Stable Decision to Admit order: Yes - Referrals - Patient Instructions - Post Discharge Activity
[2018-01-20 18:46] LABS: BLOOD UREA NITROGEN 1 mg/dL (7-18)
[2018-01-20] MEDS ORDERED: MAGNESIUM SULF 50% (8.12 MEQ/2 ML-1 GM VIAL) IVPB ONE ×2 (19:24→23:59)
[2018-01-20] MEDS ORDERED: SODIUM CHLORIDE 0.9% 1000 ML INFUS.BAG IV ONE (19:24)
[2018-01-20] MEDS ORDERED: POTASSIUM CHLORIDE TABS 20 MEQ TABLET.ER (FP) PO ONE ×2 (19:25→20:25)
[2018-01-20 20:10] LABS: INR 1.67 (0.83-1.09); PROTHROMBIN TIME (PATIENT) 19.8 SEC (9.7-13.0)
[2018-01-20 20:13] LABS: ACTIVATED PTT 40.8 SECONDS (25.2-36.5)
[2018-01-20] MEDS ORDERED: MAGNESIUM 1GM/D5W - 1 GM/100 ML IVPB IVPB ONE (20:25)
[2018-01-20] MEDS: FOLIC ACID INJECTION - 1 MG, THIAMINE HCL 100 MG, MULTIVIT INJECTION ADULT 10 ML in SOD... IVPB ONE (20:27)
[2018-01-20 21:35] LABS: URINE APPEARANCE SLCLOUDY; URINE COLOR AMBER; URINE GLUCOSE (UA) NEGATIVE (NEGATIVE); URINE KETONE NEGATIVE (NEGATIVE); URINE LEUK ESTERASE 1+ (NEGATIVE); URINE NITRITE NEGATIVE (NEGATIVE); URINE PROTEIN 2+ (NEGATIVE); URINE UROBILINOGEN 4.0 E.U/dl mg/dL (0.2-1.0)
[2018-01-20 21:43] LABS: EPI CELLS MODERATE /HPF (FEW); URINE BACTERIA RARE /hpf (NONE SEEN); URINE HYALINE CAST 89 /lpf; URINE MUCUS FEW
[2018-01-20 21:43] LABS: PHOSPHOROUS 2.8 mg/dL (2.5-4.9)
[2018-01-20] MEDS ORDERED: KETOROLAC TROMETHAMINE 15 MG/ML VIAL IVPUSH ONE (22:59)
[2018-01-20 23:13] LABS: MACROCYTOSIS 2+
--- NOTE | 2018-01-20 23:19 | PN ---
Teaching Attending Note Name of Resident: Lisa Pathak ATTENDING PHYSICIAN STATEMENT I saw and evaluated the patient. I reviewed the resident's note and discussed the case with the resident. I agree with the resident's findings and plan as documented. SUBJECTIVE: Patient is a 62 year old woman with PMH of GERD (controlled with omeprazole), tobacco use, and alcohol abuse (~1 year sober from detox), who presents with 40 lbs weight loss x2 months, weakness/"buckling of her legs", LLQ abdominal pain, and decreased PO food intake. Pt states starting 2-3 months ago, she ran out of her omeprazole pills for acid reflux. After that time, the pt was unable to tolerate any oral intake, including Boost, as she would have NBNB vomiting, loose stools, and regurgitation of her food. She was also having LLQ abdominal pain which is exacerbated by food intake, but has been constant other than during sleep. She denies any sticking sensation in her throat/bolus or trouble swallowing. Pt has been tolerating dany-shabnam only, with extremely limited PO food intake (a few tablespoons of soft food per day). She is urinating without difficulty, but has been producing no BMs, only clear mucus over the past month. Pt denies any fevers/chills, headache, vision changes, chest pain, palpitations, SOB, urinary symptoms, or leg swelling. OBJECTIVE: Alert and Cachectic Vital Signs Period Temp Pulse Resp BP Sys/Zelaya Pulse Ox Last 24 Hr 98.6 F 103-119 18-22 114-118/61-65 96-100 HEENT: No Jaundice, eye redness or discharge, PERRLA, EOMI. Normocephalic, atraumatic. External ears are normal and hearing is grossly intact. No nasal discharge. Neck: Supple, nontender. No palpable adenopathy or thyromegaly. No JVD Chest: Good effort. Clear to auscultation and percussion. Heart: Regular. No S3, rub or murmur Abdomen: Not distended, soft, nontender and no HSM. No rebound or guarding. Normoactive bowel sounds. Ext: Peripheral pulses intact. No leg edema. Skin: Warm and dry. No petechiae, rash or ecchymosis. Neuro: Alert. Oriented x3. CN 2-12 grossly intact. Sensation grossly intact in all four extremities and DTR are symmetric. Current Medications Generic Name Dose Route Start Last Admin Trade Name Juliet PRN Reason Stop Dose Admin Folic Acid 1 mg/ Thiamine HCl 1,000 mls @ 125 mls/hr 01/20/18 19:20 01/20/18 20:27 100 mg/ Multivitamins/Minerals IVPB 01/21/18 03:19 125 mls/hr 10 ml/ Sodium Chloride ONCE ONE Administration Abnormal Lab Results 01/20/18 01/20/18 01/20/18 18:09 18:09 19:44 RBC 2.74 L Hgb 10.0 L Hct 27.9 L D MCV 101.8 H MCH 36.5 H RDW 16.6 H Monocytes % 12.4 H PT with INR 19.80 H INR 1.67 H PTT (Actin FS) 40.8 H Sodium 134 L Potassium 3.1 L Chloride 93 L BUN 1 L* Random Glucose 165 H Calcium 8.0 L Magnesium 1.5 L Total Bilirubin 2.7 H AST 158 H Alkaline Phosphatase 200 H Ammonia Albumin 2.2 L Urine Protein Urine Urobilinogen Ur Leukocyte Esterase 01/20/18 01/20/18 19:44 21:12 RBC Hgb Hct MCV MCH RDW Monocytes % PT with INR INR PTT (Actin FS) Sodium Potassium Chloride BUN Random Glucose Calcium Magnesium Total Bilirubin AST Alkaline Phosphatase Ammonia 52.74 H Albumin Urine Protein 2+ H Urine Urobilinogen 4.0 e.u/dl H Ur Leukocyte Esterase 1+ H ASSESSMENT AND PLAN: 1. Rule out Hepatic/Colonic malignancy - Coupled with weight loss and CT scan showing hepatic masses and thickened colonic wall - all suspicious for malignancy. Check CEA and AFP and monitor NH3. Needs evaluation for irritable bowel disease. Get contrast enhanced Liver MRI and repeat UA with clean catch urine sample. Hepatitis serology. Treat with IV MgSO4 and KCL and monitor closely in view of prolonged QT - avoid drugs that will further prolong QT interval. 2. Tobacco Use We will provide patient all the necessary assistance to facilitate smoking cessation and prescribe Nicotine patch. 3. Anemia - Etiology unclear. Will do basic anemia work up including serial stool guaiacs, reticulocyte count and iron studies. Would benefit from Procrit therapy once iron replete. 4. Alcohol abuse - Implement [facility] alcohol withdrawal protocol, fall and aspiration precautions. Treat with thiamine and folic acid and monitor electrolytes (Ca,Mg,K,P). Refrigeration Supervisor patient about abstaining from alcohol and refer to alcohol detox upon discharge. 5. DVT prophylaxis - Lovenox 40 mg SQ q 24 hours. 6. Advance directives - Full code
[2018-01-20 23:20] LABS: TARGET CELLS 1+
--- NOTE | 2018-01-21 00:43 | HP ---
CHIEF COMPLAINT: nausea, vomiting, diarrhea, and abdominal pain PCP: HISTORY OF PRESENT ILLNESS: Patient is a 62 y/o female with a history of GERD and alcohol abuse who presents for nausea, vomiting, diarrhea, and abdominal pain. Patient states these symptoms began 2 months ago. She reports that over the last week she can only eat a few spoonfuls of grits or oatmeal. Patient reports when she eats anything she has either vomiting or diarrhea right after. For this reason patient reports she has not been eating most days. Patient also reports losing 20 pounds over the last four months. She states the abdominal pain is a dull constant pain that starts on the left, it moves toward the right. The pain is worse with eating. She has never had this pain in the past. She had a colonoscopy a long time ago that was shown to be normal. Patient reports "once in a while" she has night sweats and her bed is drenched. Reports last year she was tested for TB, hepatitis, and HIV and it was all negative. Patient has a family history of cancer, a cousin with stomach cancer and a cousin with lung cancer. Patient currently denies fever, chills, chest pain, or shortness of breath. ER course was notable for: (1) (2) (3) Recent Travel: [place] PAST MEDICAL HISTORY: GERD and alcohol abuse PAST SURGICAL HISTORY: Social History: Smokin/3 of a pack a day for 40 years+ Alcohol: sober for three years Drugs: Family History: Allergies No Known Allergies Allergy (Verified 01/20/18 17:41) HOME MEDICATIONS: REVIEW OF SYSTEMS CONSTITUTIONAL: Absent: fever, chills, diaphoresis, generalized weakness, malaise, loss of appetite, weight change HEENT: Absent: rhinorrhea, nasal congestion, throat pain, throat swelling, difficulty swallowing, mouth swelling, ear pain, eye pain, visual changes CARDIOVASCULAR: Absent: chest pain, syncope, palpitations, irregular heart rate, lightheadedness , peripheral edema RESPIRATORY: Absent: cough, shortness of breath, dyspnea with exertion, orthopnea, wheezing, stridor, hemoptysis GASTROINTESTINAL: nausea, vomiting, diarrhea, abdominal pain, Absent: abdominal distension, constipation, melena, hematochezia GENITOURINARY: Absent: dysuria, frequency, urgency, hesitancy, hematuria, flank pain, genital pain MUSCULOSKELETAL: Absent: myalgia, arthralgia, joint swelling, back pain, neck pain SKIN: Absent: rash, itching, pallor HEMATOLOGIC/IMMUNOLOGIC: Absent: easy bleeding, easy bruising, lymphadenopathy, frequent infections ENDOCRINE: Absent: unexplained weight gain, unexplained weight loss, heat intolerance, cold intolerance NEUROLOGIC: Absent: headache, focal weakness or paresthesias, dizziness, unsteady gait, seizure, mental status changes, bladder or bowel incontinence PSYCHIATRIC: Absent: anxiety, depression, suicidal or homicidal ideation, hallucinations. PHYSICAL EXAMINATION Vital Signs - 24 hr 01/20/18 01/20/18 17:42 22:33 Temperature 98.6 F Pulse Rate 119 H Pulse Rate [ 103 H Left Radial] Respiratory 22 H 18 Rate Blood Pressure 118/65 Blood Pressure 114/61 [Left Arm] O2 Sat by Pulse 96 100 Oximetry (%) GENERAL: Awake, alert, and fully oriented, in no acute distress. cachectic HEAD: Normal with no signs of trauma. EYES: Pupils equal, round and reactive to light, extraocular movements intact EARS, NOSE, THROAT: Moist mucous membranes. NECK: Normal range of motion, supple without lymphadenopathy, JVD, or masses. LUNGS: Breath sounds equal, clear to auscultation bilaterally. No wheezes, and no crackles. No accessory muscle use. HEART: Regular rate and rhythm, normal S1 and S2 without murmur, rub or gallop. ABDOMEN: Soft, tenderness to palpation in LLQ MUSCULOSKELETAL: Normal range of motion at all joints. No bony deformities or tenderness. LOWER EXTREMITIES: 2+ pulses, warm, well-perfused. No calf tenderness. No peripheral edema. NEUROLOGICAL: Cranial nerves II-XII intact. Normal speech. PSYCHIATRIC: Cooperative. Good eye contact. Appropriate mood and affect. SKIN: Warm, dry, normal turgor, no rashes or lesions noted, normal capillary refill. CBC, BMP 01/20/18 18:09 01/20/18 18:09 Urine Test Results Urine Color Janice 01/20/18 21:12 Urine Appearance Slcloudy 01/20/18 21:12 Urine pH 5.0 (5.0-8.0) 01/20/18 21:12 Ur Specific [place] 1.023 (1.010-1.035) 01/20/18 21:12 Urine Protein 2+ (NEGATIVE) H 01/20/18 21:12 Urine Glucose (UA) Negative (NEGATIVE) 01/20/18 21:12 Urine Ketones Negative (NEGATIVE) 01/20/18 21:12 Urine Blood Negative (NEGATIVE) 01/20/18 21:12 Urine Nitrite Negative (NEGATIVE) 01/20/18 21:12 Urine Bilirubin 4.0 (<2.0 mg/dL) 01/20/18 21:12 Ur Leukocyte Esterase 1+ (NEGATIVE) H 01/20/18 21:12 Ur Epithelial Cells Moderate /HPF (FEW) 01/20/18 21:12 Urine Bacteria Rare /hpf (NONE SEEN) 01/20/18 21:12 Urine Mucus Few 01/20/18 21:12 ASSESSMENT/PLAN: Patient is a 62 y/o female with a history of GERD and alcohol abuse who presents for nausea, vomiting, diarrhea, and abdominal pain. #nausea, vomiting, diarrhea, abdominal pain likely 2/2 to liver mass possibly malignancy, cannot rule out colitis vs cholelithiasis - Abd CT: diffusely patchy appearance involving the liver, which may be the basis of neoplastic disease, mild mass effect, possible colitis, cholelithiasis is noted - f/u MRCP - f/u Dr. Santana consult, NPO - f/u tumor markers and hepatitis serology - AST: 158, alk phosp: 200 - QTC: 494, be aware of antinausea medications given that prolong QTC - f/u clean catch UA for tomorrow, UA: WBC: 11, LE 1+ #anemia - macrocytic, likely 2/2 to nutritional deficiency - f/u iron studies, folate, and VB12 #nicotine dependence - nicotine patch 7mg daily #DVT ppx - heaprin TID #FEN - replete electrolytes Mg 2 gm IV - KCL 30 ml - f/u repeat morning labs Visit type - Emergency Visit Emergency Visit: Yes ED Registration Date: 01/20/18 Care time: The patient presented to the Emergency Department on the above date and was hospitalized for further evaluation of their emergent condition. - New Patient This patient is new to me today: Yes Date on this admission: 01/21/18 - Critical Care Critical Care patient: No
[2018-01-21] MEDS ORDERED: KCL 10 MEQ IVPB 10 MEQ/100 ML INFUS.BAG IVPB ONE (00:51)
[2018-01-21] MEDS ORDERED: MAGNESIUM 1GM/D5W - 2 GM/200 ML IVPB IVPB ONE (00:51)
[2018-01-21] MEDS ORDERED: KETOROLAC TROMETHAMINE 15 MG/ML VIAL ONE (00:51)
[2018-01-21] MEDS: KCL 10 MEQ IVPB 10 MEQ/100 ML INFUS.BAG IVPB SCH ×3 (00:52→04:16)
[2018-01-21] MEDS: FOLIC ACID INJECTION - 1 MG, THIAMINE HCL 100 MG, MULTIVIT INJECTION ADULT 10 ML in SOD... IVPB ONE (02:27)
[2018-01-21] MEDS: HEPARIN NA (PORCINE) 5,000 UNITS/ML 1ML VIAL SQ SCH ×2 (05:54→15:37)
[2018-01-21 07:36] LABS: BASO % 0.8 % (0-2.0); EOS % 0.6 % (0-4.5); HEMATOCRIT 23.2 % (32.4-45.2); HEMOGLOBIN 7.6 GM/dL (10.7-15.3); LYMPH % 20.7 % (8-40); MCH 33.8 pg (25.7-33.7); MCHC 32.6 g/dl (32.0-36.0); MEAN CELL VOLUME 103.9 fl (80-96); MEAN PLT VOLUME 9.4 fl (7.5-11.1); MONO % 14.3 % (3.8-10.2); NEUT % 63.6 % (42.8-82.8); PLATELET COUNT 176 K/MM3 (134-434); RBC 2.24 M/mm3 (3.60-5.2); RDW 16.5 % (11.6-15.6); WHITE BLOOD COUNT 10.4 K/mm3 (4.0-10.0)
[2018-01-21 09:22] LABS: ALBUMIN 1.7 g/dl (3.4-5.0); ALK PHOS 150 U/L (45-117); ANION GAP 9 MMOL/L (8-16); BILIRUBIN,TOTAL 2.9 mg/dL (0.2-1); BLOOD UREA NITROGEN 4 mg/dL (7-18); CALCIUM 7.3 mg/dL (8.5-10.1); CHLORIDE 106 mmol/L (98-107); CO2 26 mmol/L (21-32); CREATININE 0.5 mg/dL (0.55-1.3); GLUCOSE,RANDOM 81 mg/dL (74-106); MAGNESIUM 2.2 mg/dL (1.8-2.4); PHOSPHOROUS 2.2 mg/dL (2.5-4.9); POTASSIUM 3.5 mmol/L (3.5-5.1); SGOT/AST 104 U/L (15-37); SGPT/ALT 22 U/L (13-61); SODIUM 141 mmol/L (136-145); TOT PROT 6.2 g/dl (6.4-8.2)
[2018-01-21] MEDS: NICOTINE 7 MG/24 HOURS TOPICAL PATCH TD SCH (09:51)
--- NOTE | 2018-01-21 11:58 | EKG ---
Test Reason : Blood Pressure : / mmHG Vent. Rate : 105 BPM Atrial Rate : 105 BPM P-R Int : 000 ms QRS Dur : 062 ms QT Int : 494 ms P-R-T Axes : 000 057 067 degrees QTc Int : 652 ms POOR DATA QUALITY, INTERPRETATION MAY BE ADVERSELY AFFECTED NORMAL SINUS RHYTHM PROLONGED QT INTERVAL ABNORMAL ECG WHEN COMPARED WITH ECG OF 31-JUL-2016 11:13, ST-T ABNORMALITIES NOW PRESENT QT HAS LENGTHENED Confirmed by MACEY BARLOW MD ([id number]) on 01/21/2018 11:58:11 AM Referred By: Confirmed By:MACEY BARLOW MD
[2018-01-21] MEDS: D5-NS + 20 MEQ KCL - 20 MEQ/1,000 ML INFUS.BAG IV SCH (15:37)
--- NOTE | 2018-01-21 16:04 | CONS ---
GASTROINTESTINAL CONSULTATION DATE OF CONSULTATION: DATE OF DICTATION: 01/21/2018 The patient is a 62-year-old female with a past medical history of reflux disease, alcohol abuse. States that she quit about 4 years ago and now drinks 1 drink socially when she is out. She presents to the hospital with a 40-pound weight loss, increasing lower abdominal pain, nausea, vomiting and diarrhea as well as decreased p.o. intake. She states if she eats anything she develops abdominal pain. Reports having colonoscopy a couple years ago with Dr. Boone. She reports to be normal. She denies any history of encephalopathy, melena, hematochezia, previous paracentesis in the past. PAST MEDICAL AND SURGICAL HISTORY: As listed in the HPI. ALLERGIES: No known drug allergies. SOCIAL HISTORY: Smokes cigarettes. Quit alcohol 2 to 3 years ago. Occasionally drinks and denies any drug use. FAMILY HISTORY: There is a history of stomach cancer and lung cancer. REVIEW OF SYSTEMS: Negative except for pertinent positives in the HPI. PHYSICAL EXAMINATION: Vital Signs: Temperature 98, pulse 105, blood pressure 96/57, respiratory rate 12, pulse oximetry 96% on room air. General: No acute distress. HEENT: Anicteric sclerae. Cardiovascular: S1, S2. Regular rate and rhythm. Lungs: Bilaterally clear to auscultation. Abdomen: Softly distended with tenderness bilateral lower quadrants. Extremities: No edema. Neurological: Intact. LABORATORY DATA: White blood cell count 10.4, hemoglobin and hematocrit 7 and 23, MCV 103, platelet count 176. INR 1.6. Sodium 141, potassium 3.5, BUN/ creatinine 4/0.5, ferritin 1600, total bilirubin 2.9, AST 104, ALT 22, alkaline phosphatase 150. Ammonia level 52. Urine: One plus leukocyte esterase. Stool for occult blood is positive. Toxicology screen is negative. Serology for hepatitis A, B and C are pending at this time. She had a CAT scan of the abdomen and pelvis with contrast which revealed moderate amount of ascites, patchy appearance of the liver, neoplasm cannot be excluded, mild mass effect within the caudate lobe of the liver, and underlying fatty infiltration interval development of submucosal edema in the length of the colon, cholelithiasis, mild nonspecific gallbladder overdistention, gallbladder wall appears with some thickness and a trace amount of pericholecystic fluid and a 0.3 cm right renal calculus. IMPRESSION: Weight loss, ascites, nausea and vomiting with an underlying hepatic mass highly suspicious for a malignant process. I doubt she has colitis or cholecystitis - imaging findings are most consistent with 3rd spacing of fluid. RECOMMENDATIONS: Follow up MRCP which was ordered by the primary medical team. Would start her on a clear liquid diet and advance as tolerated based on the MRCP findings. Tumor markers and hepatitis serologies were ordered. Her liver disease may be secondary to previous alcohol use. Monitor hemoglobin and hematocrit daily while hospitalized. Also recommend a diagnostic paracentesis, obtaining cell count, protein, cytology, LDH, albumin, Gram stain and culture. Diagnostic egd is also recommended after the above studies are resulted. Will follow with you. DO JOVANNY WATT/[id number] MTDD
[2018-01-21] MEDS: PHYTONADIONE 10 MG/1 ML AMP SQ SCH (18:47)
[2018-01-21 19:10] LABS: BASO % 0.9 % (0-2.0); EOS % 0.4 % (0-4.5); HEMATOCRIT 23.7 % (32.4-45.2); MCH 35.4 pg (25.7-33.7); MCHC 33.9 g/dl (32.0-36.0); MEAN CELL VOLUME 104.6 fl (80-96); MEAN PLT VOLUME 9.4 fl (7.5-11.1); MONO % 12.1 % (3.8-10.2); NEUT % 66.6 % (42.8-82.8); PLATELET COUNT 210 K/MM3 (134-434); RBC 2.27 M/mm3 (3.60-5.2); RDW 17.2 % (11.6-15.6); WHITE BLOOD COUNT 12.4 K/mm3 (4.0-10.0)
--- NOTE | 2018-01-22 00:05 | PN ---
Progress Note (short form) - Note Progress Note: Pt is a 62 yo F, with PMH of GERD (controlled with omeprazole) and past alcohol abuse (~1 year sober from detox), who is presenting with 40 lbs weight loss x2 months, weakness/"buckling of her legs", LLQ abdominal pain, and decreased PO food intake. She was also having LLQ abdominal pain. Pt denies any fevers/ chills, headache, vision changes, chest pain, palpitations, SOB, urinary symptoms, or leg swelling. Allergies/Adverse Reactions: Allergies Allergy/AdvReac Type Severity Reaction Status Date / Time No Known Allergies Allergy Verified 01/20/18 17:41 Anemia: Yes GI Disorders: Yes (gerd) Liver Disease: Yes (fatty liver) Other medical history: alcohol abuse - Surgical History Abdominal Surgery: Yes (exp lap) - Suicide/Smoking/Psychosocial Hx Smoking History: Current every day smoker - Vital Signs afvss Cor: RSR, No murmurs, No gallops Lungs: Clear to P&A Abd: Soft, Normal bowel sounds, ascites+ Ext:No significant edema Labs/meds reviewed A/P 62 y/o patient with h/o alcohol abuse, chronic liver disease presenting with wt.loss, ascites, abdominalpain CT scan suspicious for ascits, patchy liver ? neoplastic, focal left lobe hypodensity will check CEA/AFP/CA19.9 Paracentesis Coagulopathy- due to liver disease will give trial of vitamin K In comparison to a prior CT exam of 07/23/2016 interval development of a moderate amount of free intraperitoneal fluid is seen within the pelvis. There is also a very small amount of perihepatic free fluid and trace free fluid within the right paracolic space.There also appears to be interval development of submucosal edema along the cecum as well as the ascending colon and hepatic flexure to the level of the mid transverse colon. No gross noncontrast small bowel pathology is noted. Interval development of a patchy appearance is seen involving the left and right hepatic lobes. Note is again made of underlying diffuse fatty infiltration of the liver. Focal hypodensity has developed within the segment I with apparent mild partial effacement of the traversing segment of the inferior vena cava. Cholelithiasis is again noted. The gallbladder demonstrates mild nonspecific gallbladder overdistention. Gallbladder wall thickness appears borderline. A trace amount of nonspecific pericholecystic fluid is seen. There is no definite biliary tract dilatation.No evidence of pneumoperitoneum or bowel obstruction. The spleen, pancreas, adrenal glands and left kidney demonstrate no discrete abnormality.There is no aortic aneurysm.Note is again made of a nonobstructing 0.3 cm right renal calyceal calculus. No CT evidence of acute diverticulitis or appendicitis.There is no definite lymphadenopathy on the basis of CT size criteria. No adnexal pathology is identified. Small calcified uterine leiomyomas are noted. The urinary bladder is collapsed and cannot be evaluated due to lack of intraluminal fluid. The osseous structures demonstrate no gross evidence of acute pathology or neoplastic disease.diminished subcutaneous fat is noted since the previous exam. Impression: In comparison to a prior CT exam of 07/23/2016 interval development of a moderate amount of free fluid is noted within the pelvis. There is a small amount of free fluid within the upper abdomen. Interval development of a diffusely patchy appearance is noted involving the liver which may be on the basis of neoplastic disease and probably less likely infection/ inflammation. Focal hypodensity with associated mild mass affect has developed within the caudate lobe of the liver. There is underlying fatty infiltration of the liver diffusely. Additional evaluation utilizing multiphase contrast-enhanced MRI may be considered. Apparent interval development of submucosal edema is seen along the length of the cecum, ascending colon, hepatic flexure and proximal transverse colon - ? colitis. Cholelithiasis is noted. There is mild nonspecific gallbladder overdistention. Gallbladder wall thickness appears borderline. A trace amount of pericholecystic fluid is seen. If there is clinical concern for possible acute cholecystitis additional evaluation utilizing a radionuclide HIDA scan may be performed. Note is again made of a nonobstructing 0.3 cm right renal calculus.
[2018-01-22] MEDS: D5-NS + 20 MEQ KCL - 20 MEQ/1,000 ML INFUS.BAG IV SCH (04:00)
[2018-01-22 06:40] LABS: HEP.C VIRUS AB 0.2 s/co ratio (0.0-0.9); SERUM IRON SATURATION 77 % (15-55); TOTAL IRON BINDING CAPACITY 111 ug/dL (250-450); UIBC 26 ug/dL (118-369)
--- NOTE | 2018-01-22 06:43 | PN ---
Progress Note, Physician Chief Complaint: informed by hospitalist service that pt was admitted to hospital with vomiting and weight loss and transferred pt under my care events chart meds and consults, tests reviewed and d/w pt and at bedside pt is axox3 NAD has occasional abdominal pain; no appetite; had black stools UGI bleed yesterday and dropped Hg from 10 to 7-8 but no bleeding noted today; if Hg < 8 today will transfuse PRBCs Pt. saw me in office June and August 2016 (last time) she was noncompliant with visits and recommendations; pt was not seen in office since then despite many calls and letters sent to pt to come in to be seen and to see the specialists I advised her to at that time; also of note, at that time pt weight was 101-105 lbs pt said she did not see any specialists meanwhile and she was "fine" until 2-3 months ago when she started to have abdominal pain and vomiting; said she stopped smoking but then she restarted and she smokes currently - advised to stop pt's at bedside said he tried to convince her many times to come in for follow up in office and to see the specialists she was supposed to see but she just was not interested - Current Medication List Current Medications: Active Medications Dextrose/Sodium Chloride (Dextrose 5%-Normal Saline+20 Meq Kcl -) 20 meq in 1, 000 mls @ 100 mls/hr IV ASDIR [facility] Stop: 01/23/18 01:29 Last Admin: 01/22/18 04:00 Dose: 100 mls/hr Nicotine (Nicoderm Patch -) 7 mg TD DAILY [facility] Last Admin: 01/21/18 09:51 Dose: 7 mg Phytonadione (Aqua Mephyton Injection -) 5 mg SQ DAILY [facility] Stop: 01/23/18 10:01 Last Admin: 01/21/18 18:47 Dose: 5 mg - Objective Vital Signs: Vital Signs Temperature 99.1 F 01/22/18 06:04 Pulse Rate 109 H 01/22/18 06:04 Respiratory Rate 20 01/22/18 06:04 Blood Pressure 90/50 L 01/22/18 06:04 O2 Sat by Pulse Oximetry (%) 96 01/21/18 21:00 Constitutional: Yes: No Distress, Calm Eyes: Yes: Conjunctiva Clear HENT: Yes: Atraumatic Neck: Yes: Supple Cardiovascular: Yes: Regular Rate and Rhythm Respiratory: Yes: CTA Bilaterally Gastrointestinal: Yes: Soft, Distention. No: Tenderness Genitourinary: No: CVA Tenderness - Left, CVA Tenderness - Right, Hematuria Musculoskeletal: No: Joint Stiffness, Joint Swelling Extremities: No: Cold, Cool, Cyanosis Edema: No Integumentary: No: Rash, Venous Stasis Changes Neurological: Yes: WNL, Alert, Oriented ...Motor Strength: WNL Psychiatric: Yes: WNL, Alert, Oriented. No: Agitated, Suicidal Ideation Labs: CBC, BMP 01/21/18 18:00 01/21/18 06:00 INR, PTT INR 1.67 (0.83-1.09) H 01/20/18 19:44 - ....Imaging Chest X-ray: Report Reviewed Cat Scan: Report Reviewed Other: Report Reviewed Assessment/Plan Pt is a 62 yo F, with PMH of GERD (controlled with omeprazole) and past alcohol abuse (~1 year sober from detox), h/o smoking; h/o depression, noncompliance, who is presenting with weight loss x 2 months, general weakness; abdominal pain , and decreased PO food intake. possible liver mass on abdomen CT; MRCP pending anemia GI bleed GI and heme onc consult MRCP transfuse 2 U PRBC PO PPI might need liver biopsy - will review MRI no heparin sq b/o GI bleed; d/w pt and risks DVT PE in the absence of heparin use and risks of bleeding with heparin IVF IV clinimix f/u labs falls decubs DVT pfx prognosis guarded d/w pt and d/w staff t time 45 min
[2018-01-22 07:43] LABS: INR 1.72 (0.83-1.09); PROTHROMBIN TIME (PATIENT) 20.4 SEC (9.7-13.0)
[2018-01-22 07:45] LABS: ACTIVATED PTT 41.1 SECONDS (25.2-36.5)
[2018-01-22] MEDS: PHYTONADIONE 10 MG/1 ML AMP SQ SCH (11:01)
[2018-01-22] MEDS: NICOTINE 7 MG/24 HOURS TOPICAL PATCH TD SCH (11:01)
--- NOTE | 2018-01-22 11:32 | PN ---
Progress Note, Physician Chief Complaint: still with diarrhea and nausea, states she can not tolerate the liquid diet - Current Medication List Current Medications: Active Medications Dextrose/Sodium Chloride (Dextrose 5%-Normal Saline+20 Meq Kcl -) 20 meq in 1, 000 mls @ 100 mls/hr IV ASDIR [facility] Stop: 01/23/18 01:29 Last Admin: 01/22/18 04:00 Dose: 100 mls/hr Nicotine (Nicoderm Patch -) 7 mg TD DAILY [facility] Last Admin: 01/22/18 11:01 Dose: 7 mg Phytonadione (Aqua Mephyton Injection -) 5 mg SQ DAILY [facility] Stop: 01/23/18 10:01 Last Admin: 01/22/18 11:01 Dose: 5 mg - Objective Vital Signs: Vital Signs Temperature 99.1 F 01/22/18 06:04 Pulse Rate 109 H 01/22/18 06:04 Respiratory Rate 20 01/22/18 06:04 Blood Pressure 90/50 L 01/22/18 06:04 O2 Sat by Pulse Oximetry (%) 96 01/21/18 21:00 Constitutional: Yes: No Distress, Calm Eyes: Yes: WNL HENT: Yes: WNL, Atraumatic Neck: Yes: Supple Cardiovascular: Yes: WNL, Regular Rate and Rhythm Respiratory: Yes: WNL, Regular, CTA Bilaterally Gastrointestinal: Yes: Other (flank dullness , tender lowere abdomen no rebound or guarding nml bs) Extremities: Yes: WNL Edema: No Labs: CBC, BMP 01/21/18 18:00 01/21/18 06:00 INR, PTT INR 1.72 (0.83-1.09) H 01/22/18 06:45 Fibrinogen 114.0 mg/dL (238-498) L 01/22/18 06:45 Problem List - Problems (1) Ascites Assessment/Plan: - f/u MRCP to further characterize the liver lesion - f/u tumor markers - stool cultures negative for c.diff / culture still pending - zofran Q8 ATC for symptomatic relief - pepcid 20 mg IV BID - c/w clear liquid diet - repeat labs in the am - diagnostic and therapeutic paracentesis by IR Code(s): R18.8 - OTHER ASCITES (2) Alcoholic liver disease Code(s): K70.9 - ALCOHOLIC LIVER DISEASE, UNSPECIFIED (3) Elevated transaminase level Code(s): R74.0 - NONSPEC ELEV OF LEVELS OF TRANSAMNS & LACTIC ACID DEHYDRGNSE (4) Weight loss of more than 10% body weight Code(s): R63.4 - ABNORMAL WEIGHT LOSS
[2018-01-22 11:42] LABS: HEMATOCRIT 21.7 % (32.4-45.2); HEMOGLOBIN 7.1 GM/dL (10.7-15.3); MCH 34.7 pg (25.7-33.7); MCHC 32.7 g/dl (32.0-36.0); MEAN CELL VOLUME 106.1 fl (80-96); MEAN PLT VOLUME 9.7 fl (7.5-11.1); PLATELET COUNT 196 K/MM3 (134-434); RBC 2.05 M/mm3 (3.60-5.2); RDW 17.4 % (11.6-15.6); WHITE BLOOD COUNT 11.1 K/mm3 (4.0-10.0)
[2018-01-22] MEDS: AMINO ACIDS 4.25%/D5W 1,000 ML IV SCH (16:06)
[2018-01-22] MEDS: oxyCODONE HCL 5 MG TABLET PO PRN (16:08)
[2018-01-22] MEDS ORDERED: ONDANSETRON 4 MG/2 ML VIAL IVPB SCH (17:00)
--- NOTE | 2018-01-22 18:05 | PN ---
Progress Note (short form) - Note Progress Note: Patient is c/o having an abdominal pain, no fever or chills, no shortness of breath. recent 40punds of weight loss. Initial Vital Signs Temp Pulse Resp BP Pulse Ox 98.6 F 119 H 22 H 118/65 96 01/20/18 17:42 01/20/18 17:42 01/20/18 17:42 01/20/18 17:42 01/20/18 17:42 GENERAL: Awake, alert, and fully oriented, in no acute distress. cachectic HEAD: Normal with no signs of trauma. EYES: Pupils equal, round and reactive to light, extraocular movements intact EARS, NOSE, THROAT: Moist mucous membranes. NECK: Normal range of motion, supple without lymphadenopathy, JVD, or masses. LUNGS: Breath sounds equal, clear to auscultation bilaterally. No wheezes, and no crackles. No accessory muscle use. HEART: Regular rate and rhythm, normal S1 and S2 without murmur, rub or gallop. ABDOMEN: Soft, tenderness to palpation in LLQ EXTREMITIES: 2+ pulses, warm, well-perfused. No calf tenderness. No peripheral edema. NEUROLOGICAL: Cranial nerves II-XII intact. Normal speech. PSYCHIATRIC: Cooperative. Good eye contact. Appropriate mood and affect. SKIN: Warm, dry, normal turgor, no rashes or lesions noted, normal capillary refill. Sodium 141 mmol/L (136-145) 01/21/18 06:00 Potassium 3.5 mmol/L (3.5-5.1) 01/21/18 06:00 Chloride 106 mmol/L (98-107) 01/21/18 06:00 Carbon Dioxide 26 mmol/L (21-32) 01/21/18 06:00 Anion Gap 9 MMOL/L (8-16) 01/21/18 06:00 BUN 4 mg/dL (7-18) L 01/21/18 06:00 Creatinine 0.5 mg/dL (0.55-1.3) L 01/21/18 06:00 Creat Clearance w eGFR > 60 (>60) 01/21/18 06:00 Random Glucose 81 mg/dL (74-106) 01/21/18 06:00 Calcium 7.3 mg/dL (8.5-10.1) L 01/21/18 06:00 Total Bilirubin 2.9 mg/dL (0.2-1) H 01/21/18 06:00 AST 104 U/L (15-37) H 01/21/18 06:00 ALT 22 U/L (13-61) 01/21/18 06:00 Alkaline Phosphatase 150 U/L (45-117) H 01/21/18 06:00 Total Protein 6.2 g/dl (6.4-8.2) L 01/21/18 06:00 Albumin 1.7 g/dl (3.4-5.0) L 01/21/18 06:00 CARDIAC ENZYMES Troponin I Cancelled 01/20/18 19:44 Home Medications Medication Instructions Recorded NK [No Known Home Medication] 01/21/[address]: diffusely patchy appearance involving the liver, which may be the basis of neoplastic disease, mild mass effect, possible colitis, cholelithiasis is noted A/P: Patient is a 62 y/o female with a history of GERD and alcohol abuse who presents for with nausea, vomiting, diarrhea, and abdominal pain and 40pounds of weight loss. #Acute nausea/ vomiting/ diarrhea, with abdominal pain likely due to liver mass cannot r/o malignancy with recent weight loss. f/u MRCP GI consult Dr. Santana consult, NPO, f/u tumor markers and hepatitis serology. # Acute blood loss with anemia patient is getting transfused follow,cbc # nicotine dependency nicotine patch 7mg daily #QTC: 494, be aware of antinausea medications given that prolong QTC #DVT ppx: SCDs Visit type - Emergency Visit Emergency Visit: Yes ED Registration Date: 01/20/18 Care time: The patient presented to the Emergency Department on the above date and was hospitalized for further evaluation of their emergent condition. - New Patient This patient is new to me today: Yes Date on this admission: 01/22/18 - Critical Care Critical Care patient: No - Discharge Referral Referred to [facility] Med P.C.: No
[2018-01-22] MEDS: FAMOTIDINE 20 MG/50 ML IVPB 20 MG/50 ML MG IVPB SCH (22:57)
[2018-01-23] MEDS: oxyCODONE HCL 5 MG TABLET PO PRN ×2 (00:45→17:43)
--- NOTE | 2018-01-23 06:32 | PN ---
Progress Note, Physician Chief Complaint: nausea; occasional abdominal pain MRCP done results pending - Current Medication List Current Medications: Active Medications Amino Acids (Clinimix -) 1,000 mls @ 50 mls/hr IV ASDIR [facility] Last Admin: 01/22/18 16:06 Dose: 50 mls/hr Famotidine/Sodium Chloride (Pepcid 20 Mg Premixed Ivpb -) 20 mg in 50 mls @ 100 mls/hr IVPB BID [facility] Last Admin: 01/22/18 22:57 Dose: 100 mls/hr Nicotine (Nicoderm Patch -) 7 mg TD DAILY [facility] Last Admin: 01/22/18 11:01 Dose: 7 mg Oxycodone HCl (Roxicodone -) 5 mg PO Q6H PRN PRN Reason: PAIN- Last Admin: 01/23/18 00:45 Dose: 5 mg Phytonadione (Aqua Mephyton Injection -) 5 mg SQ DAILY [facility] Stop: 01/23/18 10:01 Last Admin: 01/22/18 11:01 Dose: 5 mg - Objective Vital Signs: Vital Signs Temperature 98.4 F 01/23/18 05:07 Pulse Rate 88 01/23/18 05:07 Respiratory Rate 18 01/23/18 05:07 Blood Pressure 89/56 L 01/23/18 05:07 O2 Sat by Pulse Oximetry (%) 96 01/21/18 21:00 Constitutional: Yes: No Distress, Calm Eyes: Yes: Conjunctiva Clear HENT: Yes: Atraumatic Neck: Yes: Supple Cardiovascular: Yes: Regular Rate and Rhythm Respiratory: Yes: CTA Bilaterally Gastrointestinal: Yes: Soft, Distention Genitourinary: No: CVA Tenderness - Left, CVA Tenderness - Right Musculoskeletal: No: Joint Stiffness, Joint Swelling Extremities: No: Cold, Cool, Cyanosis Edema: No Integumentary: No: Bruising, Rash, Venous Stasis Changes Neurological: Yes: WNL, Alert, Oriented ...Motor Strength: WNL Psychiatric: Yes: WNL, Alert, Oriented. No: Agitated, Suicidal Ideation Labs: CBC, BMP 01/22/18 11:35 01/21/18 06:00 INR, PTT INR 1.72 (0.83-1.09) H 01/22/18 06:45 Fibrinogen 114.0 mg/dL (238-498) L 01/22/18 06:45 - ....Imaging Other: Report Reviewed Assessment/Plan Pt is a 62 yo F, with PMH of GERD (controlled with omeprazole) and past alcohol abuse (~1 year sober from detox), h/o smoking; h/o depression, noncompliance, who is presenting with weight loss x 2 months, general weakness; abdominal pain , and decreased PO food intake. possible liver mass on abdomen CT; MRCP pending anemia GI bleed GI and heme onc f/u MRCP check results s/p 2 U PRBC f/u labs PO PPI no heparin sq b/o GI bleed; d/w pt risks DVT PE in the absence of heparin use and risks of bleeding with heparin DVT pfx OOB with assistance; TEDs and SCDs IVF IV clinimix f/u labs falls decubs DVT pfx; d/s pt do not get OOB alone, call for help if needs OOB prognosis guarded d/w pt and staff
[2018-01-23 06:43] LABS: BASO % 1.1 % (0-2.0); EOS % 0.9 % (0-4.5); HEMATOCRIT 29.9 % (32.4-45.2); HEMOGLOBIN 10.5 GM/dL (10.7-15.3); LYMPH % 29.1 % (8-40); MCH 33.9 pg (25.7-33.7); MCHC 35.2 g/dl (32.0-36.0); MEAN CELL VOLUME 96.3 fl (80-96); MEAN PLT VOLUME 9.7 fl (7.5-11.1); MONO % 12.8 % (3.8-10.2); NEUT % 56.1 % (42.8-82.8); PLATELET COUNT 164 K/MM3 (134-434); RBC 3.11 M/mm3 (3.60-5.2); RDW 20.4 % (11.6-15.6); WHITE BLOOD COUNT 10.4 K/mm3 (4.0-10.0)
[2018-01-23 07:36] LABS: INR 1.55 (0.83-1.09); PROTHROMBIN TIME (PATIENT) 18.4 SEC (9.7-13.0)
[2018-01-23 07:38] LABS: ALBUMIN 1.8 g/dl (3.4-5.0); ALK PHOS 131 U/L (45-117); ANION GAP 8 MMOL/L (8-16); BILIRUBIN,TOTAL 2.3 mg/dL (0.2-1); BLOOD UREA NITROGEN 12 mg/dL (7-18); CHLORIDE 116 mmol/L (98-107); CO2 23 mmol/L (21-32); CREATININE 0.5 mg/dL (0.55-1.3); GLUCOSE,RANDOM 92 mg/dL (74-106); POTASSIUM 3.1 mmol/L (3.5-5.1); SGOT/AST 85 U/L (15-37); SGPT/ALT 19 U/L (13-61); SODIUM 147 mmol/L (136-145); TOT PROT 6.1 g/dl (6.4-8.2)
--- NOTE | 2018-01-23 09:42 | PN ---
GI Progress Note Subjective: States feeling weak, otherwise no focal complaints, no acute events No diarrhea Had MRI of the abdomen Still states drinking occasionally. Last time was a sip of punch on gi Reviewed [facility]: W/U with Dr. Boone: 02/12: EGD: 3cm hiatal hernia, moderate erosive esophagitits (biopsies unrevealing), normal duodenum Colonoscopy 01/13: Ascending colon polyp: tubular adenoma (subcentimeter), transverse and splenic flexure hyperplastic polyps 03/16 Abd US: Cholelithiasis, fatty liver 07/14: CT scan A/P: fibroid uterus, mild hepatomegaly, right nephrolithiasis, cholelithiasis - Objective Vital Signs: Vital Signs Temperature 98.4 F 01/23/18 05:07 Pulse Rate 88 01/23/18 05:07 Respiratory Rate 18 01/23/18 05:07 Blood Pressure 89/56 L 01/23/18 05:07 O2 Sat by Pulse Oximetry (%) 96 01/21/18 21:00 Constitutional: Calm Eyes: No: Sclera Icterus Cardiovascular: Yes: Regular Rate and Rhythm Respiratory: Yes: CTA Bilaterally Gastrointestinal Inspection: Yes: Distention (mildly protuberant) ...Auscultate: Yes: Normoactive Bowel Sounds ...Palpate: Yes: Hepatomegaly, Tenderness (TTP RUQ: refers pain to LUQ) ...Percussion: No: Tympanitic Edema: No (No LE edema) Neurological: Yes: Alert Labs: CBC, BMP 01/23/18 06:00 01/23/18 06:00 INR, PTT INR 1.55 (0.83-1.09) H 01/23/18 06:00 Fibrinogen 114.0 mg/dL (238-498) L 01/22/18 06:45 Laboratory Tests 01/21/18 01/21/18 01/22/18 06:00 06:30 06:45 Iron Saturation 77 H Ferritin 1601.3 H Tumor Marker AFP Pending Carcinoembryonic Ag Pending CA 19-9 Antigen Laboratory Tests 01/21/18 06:30 Hepatitis A IgM Ab Negative Hep Bs Antigen Negative Hep B Core IgM Ab Negative Hepatitis C Antibody 0.2 Problem List - Problems (1) Weight loss of more than 10% body weight Assessment/Plan: Awaiting follow-up MRI to reassess CT scan findings suspect chronic liver disease Follow-up tumor markers Pending results of MRI, possible paracentesis Heme/Onc on case. follow-up re: elevated iron indices as well Code(s): R63.4 - ABNORMAL WEIGHT LOSS
[2018-01-23] MEDS: NICOTINE 7 MG/24 HOURS TOPICAL PATCH TD SCH (09:43)
[2018-01-23] MEDS: FAMOTIDINE 20 MG/50 ML IVPB 20 MG/50 ML MG IVPB SCH ×2 (09:43→21:30)
[2018-01-23] MEDS: POTASSIUM CHLORIDE TABS 10 MEQ TABLET.ER (FP) PO SCH (09:43)
[2018-01-23] MEDS: PHYTONADIONE 10 MG/1 ML AMP SQ SCH (09:44)
[2018-01-23 13:17] LABS: HEMATOCRIT 29.3 % (32.4-45.2); HEMOGLOBIN 10.2 GM/dL (10.7-15.3); MCH 33.6 pg (25.7-33.7); MCHC 34.8 g/dl (32.0-36.0); MEAN CELL VOLUME 96.4 fl (80-96); MEAN PLT VOLUME 9.6 fl (7.5-11.1); PLATELET COUNT 155 K/MM3 (134-434); RBC 3.04 M/mm3 (3.60-5.2); RDW 20.6 % (11.6-15.6); WHITE BLOOD COUNT 8.9 K/mm3 (4.0-10.0)
--- NOTE | 2018-01-23 20:15 | PN ---
Progress Note (short form) - Note Progress Note: No mass lesion in liver noted. + ascites. Ordered paracentesis. Ordered fluid analysis. Asked nurse to take order for fluid cytology and albumin as I cannot order through [employer]. Non-occlusive thrombus noted in portal vein. Heme follow-up. Can arrange for EGD to screen for varices. Problem List - Problems (1) Weight loss of more than 10% body weight Code(s): R63.4 - ABNORMAL WEIGHT LOSS
[2018-01-24] MEDS: AMINO ACIDS 4.25%/D5W 1,000 ML IV SCH ×3 (00:50→22:53)
[2018-01-24 06:06] LABS: CARCINOEMBRYONIC ANTIGEN 9.6 ng/mL (0.0-4.7)
[2018-01-24 07:09] LABS: EOS % 1.7 % (0-4.5); HEMATOCRIT 27.6 % (32.4-45.2); HEMOGLOBIN 9.2 GM/dL (10.7-15.3); LYMPH % 26.4 % (8-40); MCH 32.5 pg (25.7-33.7); MCHC 33.4 g/dl (32.0-36.0); MEAN CELL VOLUME 97.3 fl (80-96); MEAN PLT VOLUME 9.7 fl (7.5-11.1); MONO % 10.2 % (3.8-10.2); NEUT % 60.7 % (42.8-82.8); PLATELET COUNT 124 K/MM3 (134-434); RBC 2.83 M/mm3 (3.60-5.2); RDW 20.5 % (11.6-15.6); WHITE BLOOD COUNT 8.3 K/mm3 (4.0-10.0)
[2018-01-24 07:18] LABS: ALBUMIN 1.6 g/dl (3.4-5.0); ALK PHOS 119 U/L (45-117); ANION GAP 7 MMOL/L (8-16); BLOOD UREA NITROGEN 11 mg/dL (7-18); CALCIUM 7.5 mg/dL (8.5-10.1); CHLORIDE 113 mmol/L (98-107); CO2 24 mmol/L (21-32); CREATININE 0.3 mg/dL (0.55-1.3); GLUCOSE,RANDOM 88 mg/dL (74-106); POTASSIUM 3.1 mmol/L (3.5-5.1); SGOT/AST 84 U/L (15-37); SGPT/ALT 17 U/L (13-61); SODIUM 144 mmol/L (136-145); TOT PROT 5.6 g/dl (6.4-8.2)
--- NOTE | 2018-01-24 08:42 | PN ---
Progress Note, Physician Chief Complaint: in bed axox3 nad, no apetite, decresaed po intake VSS afebrile; awaiting paracentesis MRCP results dw pt - advanced liver cirrhosis h/o etoh; advised complete etoh abstinence further w/u per GI and heme d/w pt - Current Medication List Current Medications: Active Medications Amino Acids (Clinimix -) 1,000 mls @ 50 mls/hr IV ASDIR [facility] Last Admin: 01/24/18 00:50 Dose: 50 mls/hr Famotidine/Sodium Chloride (Pepcid 20 Mg Premixed Ivpb -) 20 mg in 50 mls @ 100 mls/hr IVPB BID [facility] Last Admin: 01/23/18 21:30 Dose: 100 mls/hr Nicotine (Nicoderm Patch -) 7 mg TD DAILY [facility] Last Admin: 01/23/18 09:43 Dose: 7 mg Oxycodone HCl (Roxicodone -) 5 mg PO Q6H PRN PRN Reason: PAIN- Last Admin: 01/23/18 17:43 Dose: 5 mg Potassium Chloride (K-Dur -) 20 meq PO DAILY [facility] Last Admin: 01/23/18 09:43 Dose: 20 meq - Objective Vital Signs: Vital Signs Temperature 98.9 F 01/24/18 06:00 Pulse Rate 92 H 01/24/18 06:00 Respiratory Rate 18 01/24/18 06:00 Blood Pressure 97/56 L 01/24/18 06:00 O2 Sat by Pulse Oximetry (%) 96 01/21/18 21:00 Constitutional: Yes: No Distress Eyes: Yes: Conjunctiva Clear HENT: Yes: Atraumatic Neck: Yes: Supple Cardiovascular: Yes: Regular Rate and Rhythm Respiratory: Yes: CTA Bilaterally Gastrointestinal: Yes: Soft, Distention Genitourinary: No: CVA Tenderness - Left, CVA Tenderness - Right Musculoskeletal: No: Joint Stiffness, Joint Swelling Extremities: No: Cold, Cool, Cyanosis Edema: No Integumentary: No: Rash, Venous Stasis Changes Neurological: Yes: WNL, Alert, Oriented ...Motor Strength: WNL Psychiatric: Yes: WNL, Alert, Oriented. No: Agitated, Suicidal Ideation Labs: CBC, BMP 01/24/18 06:00 01/24/18 06:00 INR, PTT INR 1.55 (0.83-1.09) H 01/23/18 06:00 Fibrinogen 114.0 mg/dL (238-498) L 01/22/18 06:45 - ....Imaging Other: Report Reviewed Assessment/Plan Pt is a 62 yo F, with PMH of GERD (controlled with omeprazole) and past alcohol abuse (~1 year sober from detox), h/o smoking; h/o depression, noncompliance, who is presenting with weight loss x 2 months, general weakness; abdominal pain , and decreased PO food intake. anemia GI bleed GI and heme onc f/u MRCP no mass; liver cirrhosis s/p 2 U PRBC f/u labs PO PPI no heparin sq b/o GI bleed; d/w pt risks DVT PE in the absence of heparin use and risks of bleeding with heparin DVT pfx OOB with assistance; TEDs and SCDs IVF IV clinimix f/u labs falls decubs DVT pfx; d/s pt do not get OOB alone, call for help if needs OOB prognosis guarded d/w pt and staff
[2018-01-24] MEDS: NICOTINE 7 MG/24 HOURS TOPICAL PATCH TD SCH (09:30)
[2018-01-24] MEDS: POTASSIUM CHLORIDE TABS 10 MEQ TABLET.ER (FP) PO SCH ×2 (09:30→21:35)
[2018-01-24] MEDS: FAMOTIDINE 20 MG/50 ML IVPB 20 MG/50 ML MG IVPB SCH ×2 (09:31→21:35)
[2018-01-24] MEDS: oxyCODONE HCL 5 MG TABLET PO PRN ×2 (09:46→17:22)
[2018-01-24 16:06] LABS: PERITONEAL RBC 787 /mm3
--- NOTE | 2018-01-24 16:56 | PN ---
GI Progress Note Subjective: Had parecentesis today. Unsure. how much fluid was removed. MRI was performed. Did not show obvious mass lesion of the liver. Right portal vein thrombuis noted. per my discussion with Dr. Ng, it did not appea to have signs consistent with chronicity. - Objective Vital Signs: Vital Signs Temperature 98.3 F 01/24/18 14:47 Pulse Rate 93 H 01/24/18 14:47 Respiratory Rate 18 01/24/18 14:47 Blood Pressure 116/70 01/24/18 14:47 O2 Sat by Pulse Oximetry (%) 98 01/24/18 09:00 Constitutional: Calm Eyes: No: Sclera Icterus Cardiovascular: Yes: Regular Rate and Rhythm Respiratory: Yes: CTA Bilaterally Gastrointestinal Inspection: Yes: Distention ...Auscultate: Yes: Normoactive Bowel Sounds ...Palpate: No: Tenderness Labs: CBC, BMP 01/24/18 06:00 01/24/18 06:00 INR, PTT INR 1.55 (0.83-1.09) H 01/23/18 06:00 Fibrinogen 114.0 mg/dL (238-498) L 01/22/18 06:45 Laboratory Tests 01/22/18 01/22/18 06:45 06:45 Tumor Marker AFP 6.6 Carcinoembryonic Ag 9.6 H CA 19-9 Antigen 1 - ....Imaging MRI: Report Reviewed Problem List - Problems (1) Cirrhosis Assessment/Plan: With sequela of ascites Also with right portal vein thrombus. Suspect secondary to portal hypertension, however with weight loss, malignancy and early saiety, malignancy will have to be excluded as well. Discussed with Ms. Minh Huffman and his . Discussed the plan for EGD to screen for varices in setting of need for possible anticoagulation as well as to further evaluate diminished appetite. We discussed potential risks of the procedures like buit not limited to bleeding, perforation requiring surgery to repair, infection, sedation medication effects all of which could be potentially life threatening. We also discussed possible banding of varices if necessary. She has agreed to the procedure. With anemia, guaiac positive stool, mildly elevated CEA (which could also be related to cigarette smoking), will likely need repeat colonoscopy as well Heme will be evaluating given PVT and ? iron overload. Peritoneal fluid differential pending as is chemistry (paeritoneal fluid chemistry is now sent out) Code(s): K74.60 - UNSPECIFIED CIRRHOSIS OF LIVER
[2018-01-24 17:07] LABS: PERITONEAL FLUID EOSINOPHIL 10 %; PERITONEAL FLUID LYMPHOCYTE 2 %; PERITONEAL FLUID MACROPHAGE 8 %; PERITONEAL FLUID MESOTHELIAL 80 %; PERITONEAL FLUID MONOCYTE 0 %; PERITONEAL FLUID NEUTROPHIL 0 %
--- NOTE | 2018-01-24 19:22 | PN ---
Progress Note (short form) - Note Progress Note: Patient seen and examined Underwent paracentesis Analysis pending MRCP / Ct abdomen results reviewed - fatty liver ; no obvious mass lesion; right portal vein thrombosis- apparently acute Last Vital Signs Temp Pulse Resp BP Pulse Ox 98.2 F 90 18 112/73 98 01/24/18 17:00 01/24/18 17:00 01/24/18 17:00 01/24/18 17:00 01/24/18 09:00 HEENT: TOI, EOM Intact Oropharynx: No thrush, No mucositis, upper bite plate Cor: RSR, No murmurs, No gallops Lungs:diminished breath sounds and rales at bases Abd: Soft, ascites with fluid wave Ext:No significant edema Skin: No rashes, Integument intact CBC, BMP 01/24/18 06:00 01/24/18 06:00 Current Medications Generic Name Dose Route Start Last Admin Trade Name Freq PRN Reason Stop Dose Admin Amino Acids 1,000 mls @ 50 mls/hr 01/22/18 14:30 01/24/18 17:20 Clinimix - IV Not Given ASDIR KISHA Famotidine/Sodium Chloride 20 mg in 50 mls @ 100 mls/hr 01/22/18 22:00 09:31 Pepcid 20 Mg Premixed Ivpb - IVPB 100 mls/hr BID [facility]IS[facility] Administration Nicotine 7 mg 01/21/18 10:00 01/24/18 09:30 Nicoderm Patch - TD 7 mg DAILY [facility] Administration Oxycodone HCl 5 mg 01/22/18 13:45 01/24/18 17:22 Roxicodone - PO 5 mg Q6H PRN Administration PAIN- Potassium Chloride 20 meq 01/24/18 22:00 K-Dur - PO BID KISHA Impression: Portal vein thrombosis Hepatocellular disease Ascites- s/p paracentesis Thrombocytopenia mild elevation of CEA Elevation of ferritin Plan: Undergoing EGD to asses ?? of varices to determine feasibility of a/c Will need colonoscopy in view of elevation of CEA which might be secondary to underlying liver disease , but needs evaluation Serum TIBC-111; FE++--85; Iron saturation is 77% but elevated saturation likely represents low serum TIBC secondary to liver disease. High ferritin presumably secondary to liver disease as well. Await EGD
[2018-01-25] MEDS: oxyCODONE HCL 5 MG TABLET PO PRN ×2 (06:19→19:13)
--- NOTE | 2018-01-25 06:50 | PN ---
Progress Note, Physician Chief Complaint: feels better less nausea; s/p paracentesis awaiting EGD no bleed - Current Medication List Current Medications: Active Medications Amino Acids (Clinimix -) 1,000 mls @ 50 mls/hr IV ASDIR [facility] Last Admin: 01/24/18 22:53 Dose: 50 mls/hr Famotidine/Sodium Chloride (Pepcid 20 Mg Premixed Ivpb -) 20 mg in 50 mls @ 100 mls/hr IVPB BID [facility] Last Admin: 01/24/18 21:35 Dose: 100 mls/hr Nicotine (Nicoderm Patch -) 7 mg TD DAILY [facility] Last Admin: 01/24/18 09:30 Dose: 7 mg Oxycodone HCl (Roxicodone -) 5 mg PO Q6H PRN PRN Reason: PAIN- Last Admin: 01/25/18 06:19 Dose: 5 mg Potassium Chloride (K-Dur -) 20 meq PO BID [facility] Last Admin: 01/24/18 21:35 Dose: 20 meq - Objective Vital Signs: Vital Signs Temperature 98.9 F 01/25/18 06:35 Pulse Rate 95 H 01/25/18 06:35 Respiratory Rate 18 01/25/18 06:35 Blood Pressure 106/64 01/25/18 06:35 O2 Sat by Pulse Oximetry (%) 97 01/24/18 21:00 Constitutional: Yes: No Distress, Calm Eyes: Yes: Conjunctiva Clear HENT: Yes: Atraumatic Neck: Yes: Supple Cardiovascular: Yes: Regular Rate and Rhythm Respiratory: Yes: CTA Bilaterally Gastrointestinal: Yes: Soft, Distention. No: Tenderness Genitourinary: No: CVA Tenderness - Left, CVA Tenderness - Right, Hematuria Musculoskeletal: No: Joint Stiffness, Joint Swelling Extremities: No: Cold, Cool, Cyanosis Edema: No Integumentary: No: Rash, Venous Stasis Changes Neurological: Yes: WNL, Alert, Oriented ...Motor Strength: WNL Psychiatric: Yes: WNL, Alert, Oriented. No: Agitated, Suicidal Ideation Labs: CBC, BMP 01/24/18 06:00 01/24/18 06:00 INR, PTT INR 1.55 (0.83-1.09) H 01/23/18 06:00 Fibrinogen 114.0 mg/dL (238-498) L 01/22/18 06:45 - ....Imaging Other: Report Reviewed Assessment/Plan Pt is a 62 yo F, with PMH of GERD (controlled with omeprazole) and past alcohol abuse (~1 year sober from detox), h/o smoking; h/o depression, noncompliance, who is presenting with weight loss x 2 months, general weakness; abdominal pain , and decreased PO food intake. anemia GI bleed GI and heme onc f/u; s/p paracentesis; awaiting EGD MRCP no mass; liver cirrhosis s/p 2 U PRBC f/u labs PO PPI no heparin sq b/o GI bleed; d/w pt risks DVT PE in the absence of heparin use and risks of bleeding with heparin DVT pfx OOB with assistance; TEDs and SCDs IVF IV clinimix f/u labs falls decubs DVT pfx; d/s pt do not get OOB alone, call for help if needs OOB prognosis guarded d/w pt and staff
[2018-01-25 07:25] LABS: BASO % 0.6 % (0-2.0); HEMATOCRIT 28.3 % (32.4-45.2); HEMOGLOBIN 9.3 GM/dL (10.7-15.3); LYMPH % 24.4 % (8-40); MCH 32.4 pg (25.7-33.7); MCHC 32.9 g/dl (32.0-36.0); MEAN CELL VOLUME 98.4 fl (80-96); MEAN PLT VOLUME 9.8 fl (7.5-11.1); MONO % 10.8 % (3.8-10.2); NEUT % 63.2 % (42.8-82.8); PLATELET COUNT 130 K/MM3 (134-434); RBC 2.88 M/mm3 (3.60-5.2); RDW 19.6 % (11.6-15.6); WHITE BLOOD COUNT 9.1 K/mm3 (4.0-10.0)
[2018-01-25 07:35] LABS: INR 1.49 (0.83-1.09); PROTHROMBIN TIME (PATIENT) 17.7 SEC (9.7-13.0)
[2018-01-25 07:51] LABS: ALBUMIN 1.6 g/dl (3.4-5.0); ALK PHOS 124 U/L (45-117); ANION GAP 6 MMOL/L (8-16); BILIRUBIN,TOTAL 1.9 mg/dL (0.2-1); BLOOD UREA NITROGEN 10 mg/dL (7-18); CALCIUM 7.7 mg/dL (8.5-10.1); CHLORIDE 109 mmol/L (98-107); CO2 26 mmol/L (21-32); CREATININE 0.4 mg/dL (0.55-1.3); GLUCOSE,RANDOM 84 mg/dL (74-106); POTASSIUM 3.6 mmol/L (3.5-5.1); SGOT/AST 92 U/L (15-37); SGPT/ALT 16 U/L (13-61); SODIUM 141 mmol/L (136-145); TOT PROT 5.8 g/dl (6.4-8.2)
[2018-01-25] MEDS: FAMOTIDINE 20 MG/50 ML IVPB 20 MG/50 ML MG IVPB SCH ×2 (10:11→23:32)
[2018-01-25] MEDS: POTASSIUM CHLORIDE TABS 10 MEQ TABLET.ER (FP) PO SCH ×2 (10:11→23:31)
[2018-01-25] MEDS: NICOTINE 7 MG/24 HOURS TOPICAL PATCH TD SCH (10:11)
--- NOTE | 2018-01-25 11:32 | PN ---
Progress Note (short form) - Note Progress Note: PROGRESS NOTE FOR HEMATOLOGY/ONCOLOGY Patient seen and examined by me at bedside Patient s/p paracentesis with analysis pending Patient offers no complaints Denies any fever, chills, abdominal pain, chest pain, palpitations, shortness of breath, headaches, melena, hematuria, hematochezia, dysuria Vital Signs Temperature 98.7 F 01/25/18 10:00 Pulse Rate 88 01/25/18 10:00 Respiratory Rate 18 01/25/18 10:00 Blood Pressure 82/54 L 01/25/18 10:00 O2 Sat by Pulse Oximetry (%) 97 01/25/18 09:00 PHYSICAL EXAMINATION: GENERAL: Awake, Alert, oriented x3 and in no acute distress HEENT: PERRL, EOMI, No oral thrush CARDIO: RRR, normal s1 and s2 with no m/r/g LUNGS: Decreased breath sounds throughout lung bases bilaterally ABDOMEN: Soft, distended, nontender, normo active bowel sounds EXTREMITIES: No peripheral edema SKIN: No lesions or rashes Laboratory Tests 01/25/18 06:10 01/25/18 06:10 01/21/18 01/25/18 12:05 06:10 Total Bilirubin 1.9 H AST 92 H ALT 16 Alkaline Phosphatase 124 H Total Protein 5.8 L Albumin 1.6 L Stool Occult Blood Positive ASSESSMENT AND PLAN: Patient is a 62 year old female with a PMHx of Alcohol abuse who presented for nausea, vomiting, weight loss, abdominal pain and was found to have ascites and Portal vein thrombosis. Problem List: Portal vein thrombosis Hepatocellular disease Ascites- s/p paracentesis Thrombocytopenia mild elevation of CEA Elevation of ferritin Alcohol abuse GERD PLAN: -Patient undergoing EGD today to screen for varices to determine Anticoagulation. -In light of CEA elevation, recent weight loss, Anemia and positive stool guaiac , patient will need colonoscopy and further evaluation for malignancy. -Iron studies ordered with results presumably secondary to liver disease -Will follow up once EGD is done
[2018-01-25] MEDS: AMINO ACIDS 4.25%/D5W 1,000 ML IV SCH (19:10)
--- NOTE | 2018-01-26 06:49 | PN ---
Progress Note, Physician Chief Complaint: s/p EGD report pending; ascitic fluid results also pending still not eating well, occasional abdominal pain consults reviewed and d/w pt - Current Medication List Current Medications: Active Medications Amino Acids (Clinimix -) 1,000 mls @ 50 mls/hr IV ASDIR [facility] Last Admin: 01/25/18 19:10 Dose: 50 mls/hr Famotidine/Sodium Chloride (Pepcid 20 Mg Premixed Ivpb -) 20 mg in 50 mls @ 100 mls/hr IVPB BID [facility] Last Admin: 01/25/18 23:32 Dose: 100 mls/hr Nicotine (Nicoderm Patch -) 7 mg TD DAILY [facility] Last Admin: 01/25/18 10:11 Dose: 7 mg Oxycodone HCl (Roxicodone -) 5 mg PO Q6H PRN PRN Reason: PAIN- Last Admin: 01/25/18 19:13 Dose: 5 mg Potassium Chloride (K-Dur -) 20 meq PO BID [facility] Last Admin: 01/25/18 23:31 Dose: 20 meq - Objective Vital Signs: Vital Signs Temperature 98.7 F 01/26/18 06:00 Pulse Rate 88 01/26/18 06:00 Respiratory Rate 18 01/26/18 06:00 Blood Pressure 94/59 L 01/26/18 06:00 O2 Sat by Pulse Oximetry (%) 98 01/25/18 21:00 Constitutional: Yes: No Distress, Calm Eyes: Yes: Conjunctiva Clear HENT: Yes: Atraumatic Neck: Yes: Supple Cardiovascular: Yes: Regular Rate and Rhythm Respiratory: Yes: CTA Bilaterally Gastrointestinal: Yes: Soft. No: Tenderness Genitourinary: No: CVA Tenderness - Left, CVA Tenderness - Right, Hematuria Musculoskeletal: No: Joint Stiffness, Joint Swelling Extremities: No: Cold, Cool, Cyanosis Edema: No Integumentary: No: Rash, Venous Stasis Changes Neurological: Yes: WNL, Alert, Oriented ...Motor Strength: WNL Psychiatric: Yes: WNL, Alert, Oriented. No: Agitated, Suicidal Ideation Labs: CBC, BMP 01/25/18 06:10 01/25/18 06:10 INR, PTT INR 1.49 (0.83-1.09) H 01/25/18 06:10 Fibrinogen 114.0 mg/dL (238-498) L 01/22/18 06:45 - ....Imaging Other: Report Reviewed Assessment/Plan Pt is a 62 yo F, with PMH of GERD (controlled with omeprazole) and past alcohol abuse (~1 year sober from detox), h/o smoking; h/o depression, noncompliance, who is presenting with weight loss x 2 months, general weakness; abdominal pain , and decreased PO food intake; anemia GI bleed GI and heme onc f/u; s/p paracentesis; s/p EGD results pending; MRCP no mass; c/w advanced liver cirrhosis PO PPI no heparin sq b/o GI bleed; d/w pt risks DVT PE in the absence of heparin use and risks of bleeding with heparin DVT pfx OOB with assistance; TEDs and SCDs IVF IV clinimix f/u labs falls decubs DVT pfx; d/s pt do not get OOB alone, call for help if needs OOB prognosis guarded d/w pt and staff
[2018-01-26 07:13] LABS: BASO % 0.7 % (0-2.0); EOS % 0.8 % (0-4.5); HEMATOCRIT 28.5 % (32.4-45.2); HEMOGLOBIN 9.3 GM/dL (10.7-15.3); LYMPH % 25.9 % (8-40); MCH 32.4 pg (25.7-33.7); MCHC 32.6 g/dl (32.0-36.0); MEAN CELL VOLUME 99.3 fl (80-96); MEAN PLT VOLUME 9.9 fl (7.5-11.1); MONO % 17.3 % (3.8-10.2); NEUT % 55.3 % (42.8-82.8); PLATELET COUNT 121 K/MM3 (134-434); RBC 2.87 M/mm3 (3.60-5.2); RDW 18.9 % (11.6-15.6); WHITE BLOOD COUNT 8.5 K/mm3 (4.0-10.0)
[2018-01-26 07:47] LABS: ALBUMIN 1.6 g/dl (3.4-5.0); ALK PHOS 115 U/L (45-117); ANION GAP 8 MMOL/L (8-16); BILIRUBIN,TOTAL 1.4 mg/dL (0.2-1); BLOOD UREA NITROGEN 9 mg/dL (7-18); CALCIUM 7.8 mg/dL (8.5-10.1); CHLORIDE 107 mmol/L (98-107); CO2 24 mmol/L (21-32); CREATININE 0.4 mg/dL (0.55-1.3); GLUCOSE,RANDOM 80 mg/dL (74-106); POTASSIUM 3.6 mmol/L (3.5-5.1); SGOT/AST 90 U/L (15-37); SGPT/ALT 18 U/L (13-61); SODIUM 139 mmol/L (136-145); TOT PROT 5.6 g/dl (6.4-8.2)
[2018-01-26] MEDS: NICOTINE 7 MG/24 HOURS TOPICAL PATCH TD SCH (09:54)
[2018-01-26] MEDS: FAMOTIDINE 20 MG/50 ML IVPB 20 MG/50 ML MG IVPB SCH (09:54)
[2018-01-26] MEDS: POTASSIUM CHLORIDE TABS 10 MEQ TABLET.ER (FP) PO SCH (09:55)
[2018-01-26] MEDS: oxyCODONE HCL 5 MG TABLET PO PRN ×2 (10:00→18:02)
--- NOTE | 2018-01-26 13:22 | PN ---
Progress Note (short form) - Note Progress Note: PROGRESS NOTE FOR HEMATOLOGY/ONCOLOGY Patient seen and examined by me at bedside Patient s/p EGD yesterday and was found to have portal hypertensive gastropathy and grade 1 esophageal varices Patient states she has more energy today and was able to tolerate her food today. Denies any fever, chills, abdominal pain, chest pain, palpitations, shortness of breath, headaches, hematuria, hematochezia, dysuria Vital Signs Temperature 98.7 F 01/26/18 06:00 Pulse Rate 88 01/26/18 06:00 Respiratory Rate 18 01/26/18 06:00 Blood Pressure 94/59 L 01/26/18 06:00 O2 Sat by Pulse Oximetry (%) 98 01/25/18 21:00 PHYSICAL EXAMINATION: GENERAL: Awake, Alert, oriented x3 and in no acute distress HEENT: PERRL, EOMI, No oral thrush CARDIO: RRR, normal s1 and s2 with no m/r/g LUNGS: Decreased breath sounds throughout lung bases bilaterally ABDOMEN: Soft, distended, nontender, normo active bowel sounds EXTREMITIES: No peripheral edema SKIN: No lesions or rashes Laboratory Tests 01/26/18 06:30 01/26/18 06:30 ASSESSMENT AND PLAN: Patient is a 62 year old female with a PMHx of Alcohol abuse who presented for nausea, vomiting, weight loss, abdominal pain and was found to have ascites and Portal vein thrombosis. Problem List: Portal vein thrombosis Hepatocellular disease Ascites- s/p paracentesis Thrombocytopenia mild elevation of CEA Elevation of ferritin Alcohol abuse GERD Grade I esophageal varices Portal Hypertensive Gastropathy PLAN: -Patient has coagulopathy with INR initially >2 and now has Varices with Portal vein thrombosis. Will need to discuss with GI about the risks and benefits of placing patient on Anticoagulation. -In light of CEA elevation, recent weight loss, Anemia and positive stool guaiac , patient will need colonoscopy and further evaluation for malignancy.
[2018-01-26] MEDS: AMINO ACIDS 4.25%/D5W 1,000 ML IV SCH (16:00)
[2018-01-27] MEDS: oxyCODONE HCL 5 MG TABLET PO PRN ×3 (00:08→18:41)
[2018-01-27] MEDS: FAMOTIDINE 20 MG/50 ML IVPB 20 MG/50 ML MG IVPB SCH ×3 (00:09→23:47)
[2018-01-27] MEDS: POTASSIUM CHLORIDE TABS 10 MEQ TABLET.ER (FP) PO SCH ×3 (00:09→23:47)
--- NOTE | 2018-01-27 07:12 | PN ---
Progress Note, Physician Chief Complaint: nauseous, low po intake, no diarrhea, occasional abdominal pain on prn oxycodone (d/w pt risks and SE with prolonged use like falls tolerance dependence she is aware said she still needs it now) EGD c/w esophageal varices; in context of advanced liver ds cirrhosis - d/w pt total etoh abstinence also d./w pt AA referral as outpt and psychiatry f/u for h /o depression - the above to be done by pt within 1-2 weeks of DC home she said she will. awaiting GI input - Current Medication List Current Medications: Active Medications Amino Acids (Clinimix -) 1,000 mls @ 50 mls/hr IV ASDIR [facility] Last Admin: 01/26/18 16:00 Dose: 50 mls/hr Famotidine/Sodium Chloride (Pepcid 20 Mg Premixed Ivpb -) 20 mg in 50 mls @ 100 mls/hr IVPB BID [facility] Last Admin: 01/27/18 00:09 Dose: 100 mls/hr Nicotine (Nicoderm Patch -) 7 mg TD DAILY [facility] Last Admin: 01/26/18 09:54 Dose: 7 mg Oxycodone HCl (Roxicodone -) 5 mg PO Q6H PRN PRN Reason: PAIN- Last Admin: 01/27/18 00:08 Dose: 5 mg Potassium Chloride (K-Dur -) 20 meq PO BID [facility] Last Admin: 01/27/18 00:09 Dose: 20 meq - Objective Vital Signs: Vital Signs Temperature 98.0 F 01/26/18 21:00 Pulse Rate 88 01/26/18 21:00 Respiratory Rate 18 01/26/18 21:00 Blood Pressure 115/75 01/26/18 21:00 O2 Sat by Pulse Oximetry (%) 97 01/26/18 21:00 Constitutional: Yes: No Distress, Calm Eyes: Yes: Conjunctiva Clear HENT: Yes: Atraumatic Neck: Yes: Supple Cardiovascular: Yes: Regular Rate and Rhythm Respiratory: Yes: CTA Bilaterally Gastrointestinal: Yes: Soft. No: Distention Genitourinary: No: CVA Tenderness - Left, CVA Tenderness - Right Musculoskeletal: No: Joint Stiffness, Joint Swelling Extremities: No: Cold, Cool, Cyanosis Edema: No Integumentary: No: Rash, Venous Stasis Changes Neurological: Yes: WNL, Alert, Oriented ...Motor Strength: WNL Psychiatric: Yes: WNL, Alert, Oriented. No: Agitated, Suicidal Ideation Labs: CBC, BMP 01/26/18 06:30 01/26/18 06:30 INR, PTT INR 1.49 (0.83-1.09) H 01/25/18 06:10 Fibrinogen 114.0 mg/dL (238-498) L 01/22/18 06:45 - ....Imaging Other: Report Reviewed Assessment/Plan Pt is a 62 yo F, with PMH of GERD (controlled with omeprazole) and past alcohol abuse (~1 year sober from detox), h/o smoking; h/o depression, noncompliance, who is presenting with weight loss x 2 months, general weakness; abdominal pain , and decreased PO food intake; anemia GI bleed, portal vein thrombosis GI and heme onc f/u; EGD results noted and d/w pt MRCP no mass; c/w advanced liver cirrhosis PO PPI no heparin sq b/o GI bleed; d/w pt risks DVT PE in the absence of heparin use and risks of bleeding with heparin; also d/w heme dr Flores and pt about AC indications for portal vein thrombosis but risks of bleeding in view of advanced liver ds, esophageal varices, anemia and low PLT; decision to hold AC for now d/w pt risks indications alternatives and consequences DVT pfx OOB with assistance; TEDs and SCDs IVF IV clinimix f/u labs falls decubs DVT pfx; d/s pt do not get OOB alone, call for help if needs OOB prognosis guarded d/w pt and staff
[2018-01-27 08:02] LABS: BASO % 0.5 % (0-2.0); EOS % 0.7 % (0-4.5); HEMATOCRIT 28.1 % (32.4-45.2); LYMPH % 22.5 % (8-40); MCHC 35.5 g/dl (32.0-36.0); MEAN CELL VOLUME 98.5 fl (80-96); MEAN PLT VOLUME 10.4 fl (7.5-11.1); MONO % 20.3 % (3.8-10.2); PLATELET COUNT 134 K/MM3 (134-434); RBC 2.86 M/mm3 (3.60-5.2); RDW 18.3 % (11.6-15.6); WHITE BLOOD COUNT 8.2 K/mm3 (4.0-10.0)
[2018-01-27 08:30] LABS: ALBUMIN 1.7 g/dl (3.4-5.0); ALK PHOS 123 U/L (45-117); ANION GAP 8 MMOL/L (8-16); BLOOD UREA NITROGEN 7 mg/dL (7-18); CALCIUM 7.9 mg/dL (8.5-10.1); CHLORIDE 104 mmol/L (98-107); CO2 24 mmol/L (21-32); CREATININE 0.4 mg/dL (0.55-1.3); GLUCOSE,RANDOM 90 mg/dL (74-106); SGOT/AST 94 U/L (15-37); SGPT/ALT 21 U/L (13-61); SODIUM 136 mmol/L (136-145); TOT PROT 5.9 g/dl (6.4-8.2)
--- NOTE | 2018-01-27 09:09 | PN ---
Progress Note (short form) - Note Progress Note: Patient seen and examined Complains of diarrhea Results of EGD noted Colonoscopy not performed and ending in light of elevated CEA Has portal hypertension with esophageall varices in the setting of portal vein thrombosis Last Vital Signs Temp Pulse Resp BP Pulse Ox 98.0 F 88 18 115/75 97 01/26/18 21:00 01/26/18 21:00 01/26/18 21:00 01/26/18 21:00 01/26/18 21:00 HEENT: TOI, EOM Intact Oropharynx: No thrush, No mucositis upper bite plate Neck: Supple Cor: RSR, No murmurs, No gallops Lungs: Clear to P&A Abd: distended ; liver percussed 4 FB below RCM Ext:No significant edema Skin: No rashes, Integument intact CBC, BMP 01/27/18 06:30 01/27/18 06:30 Current Medications Generic Name Dose Route Start Last Admin Trade Name Freq PRN Reason Stop Dose Admin Amino Acids 1,000 mls @ 50 mls/hr 01/22/18 14:30 01/26/18 16:00 Clinimix - IV 50 mls/hr ASDIR KISHA Administration Famotidine/Sodium Chloride 20 mg in 50 mls @ 100 mls/hr 01/22/18 22:00 00:09 Pepcid 20 Mg Premixed Ivpb - IVPB 100 mls/hr BID KISHA Administration Nicotine 7 mg 01/21/18 10:00 01/26/18 09:54 Nicoderm Patch - TD 7 mg DAILY KISHA Administration Oxycodone HCl 5 mg 01/25/18 19:04 01/27/18 00:08 Roxicodone - PO 5 mg Q6H PRN Administration PAIN- Potassium Chloride 20 meq 01/24/18 22:00 01/27/18 00:09 K-Dur - PO 20 meq BID KISHA Administration Impression: Hepatocellular disease Portal hypertension Esophageal varices portal vein thrombosis Anemia Plan Patient has coagulopathy with INR initially >2 and now has Varices with Portal vein thrombosis. Will need to discuss with GI about the risks and benefits of placing patient on Anticoagulation. -In light of CEA elevation, recent weight loss, Anemia and positive stool guaiac , patient will need colonoscopy and further evaluation for malignanc Will order stool for c. difficile
[2018-01-27] MEDS: NICOTINE 7 MG/24 HOURS TOPICAL PATCH TD SCH (10:13)
[2018-01-27 11:32] LABS: ANISOCYTOSIS 0; MACROCYTOSIS 0; PLATELET ESTIMATE NORMAL; TARGET CELLS 2+
[2018-01-27] MEDS: AMINO ACIDS 4.25%/D5W 1,000 ML IV SCH (15:59)
--- NOTE | 2018-01-27 18:11 | PATH ---
Cytology Non-Gynecological Report Patient Name: DELORES FERREIRA [facility]. Rec. #: [id number] /Age/Gender: 1955 (Age: 62) / F Account: [id number] Location: [facility] MED/SURG Taken: 01/24/2018 Received: 01/25/2018 Reported: 01/27/2018 Physicians: Trisha Barragan MD Specimen(s) Received A: PERITONEAL FLUID B: PERITONEAL FLUID Clinical History Ascites Final Diagnosis A & B. ABDOMINAL FLUID, PARACENTESIS: SATISFACTORY FOR EVALUATION. NO MALIGNANT CELLS IDENTIFIED. MESOTHELIAL CELLS, NEUTROPHILS, LYMPHOCYTES, AND FEW MACROPHAGES PRESENT. Electronically Signed Lisa Bianchi M.D. Gross Description A. Approximately 50 cc of yellow fluid received fixed in 50% alcohol. One cytofunnel prepared and Pap stained. One cellblock prepared. B. Approximately 1000 cc of yellow fluid received fresh. One cytofunnel prepared and Pap stained. One cellblock prepared.
[2018-01-28 07:32] LABS: BASO % 0.8 % (0-2.0); EOS % 0.7 % (0-4.5); HEMATOCRIT 28.6 % (32.4-45.2); HEMOGLOBIN 9.3 GM/dL (10.7-15.3); LYMPH % 23.7 % (8-40); MCH 32.6 pg (25.7-33.7); MCHC 32.6 g/dl (32.0-36.0); MEAN CELL VOLUME 99.9 fl (80-96); MEAN PLT VOLUME 10.4 fl (7.5-11.1); MONO % 20.2 % (3.8-10.2); NEUT % 54.6 % (42.8-82.8); PLATELET COUNT 134 K/MM3 (134-434); RBC 2.87 M/mm3 (3.60-5.2); RDW 18.4 % (11.6-15.6); WHITE BLOOD COUNT 8.9 K/mm3 (4.0-10.0)
--- NOTE | 2018-01-28 07:34 | PN ---
Progress Note, Physician Chief Complaint: stable no new c/o less nausea will try to eat breakfast - Current Medication List Current Medications: Active Medications Amino Acids (Clinimix -) 1,000 mls @ 50 mls/hr IV ASDIR [facility] Last Admin: 01/27/18 15:59 Dose: 50 mls/hr Famotidine/Sodium Chloride (Pepcid 20 Mg Premixed Ivpb -) 20 mg in 50 mls @ 100 mls/hr IVPB BID [facility] Last Admin: 01/27/18 23:47 Dose: 100 mls/hr Nicotine (Nicoderm Patch -) 7 mg TD DAILY [facility] Last Admin: 01/27/18 10:13 Dose: 7 mg Oxycodone HCl (Roxicodone -) 5 mg PO Q6H PRN PRN Reason: PAIN- Last Admin: 01/27/18 18:41 Dose: 5 mg Potassium Chloride (K-Dur -) 20 meq PO BID [facility] Last Admin: 01/27/18 23:47 Dose: 20 meq - Objective Vital Signs: Vital Signs Temperature 98.5 F 01/28/18 06:01 Pulse Rate 89 01/28/18 06:01 Respiratory Rate 18 01/28/18 06:01 Blood Pressure 84/48 L 01/28/18 06:01 O2 Sat by Pulse Oximetry (%) 98 01/27/18 21:00 Constitutional: Yes: No Distress, Calm Eyes: Yes: Conjunctiva Clear HENT: Yes: Atraumatic Neck: Yes: Supple Cardiovascular: Yes: Regular Rate and Rhythm Respiratory: Yes: CTA Bilaterally Gastrointestinal: Yes: Soft. No: Distention Genitourinary: No: CVA Tenderness - Left, CVA Tenderness - Right Musculoskeletal: No: Joint Stiffness, Joint Swelling Edema: No Integumentary: No: Rash, Venous Stasis Changes Neurological: Yes: WNL, Alert, Oriented ...Motor Strength: WNL Psychiatric: Yes: WNL, Alert, Oriented. No: Agitated, Suicidal Ideation Labs: INR, PTT INR 1.49 (0.83-1.09) H 01/25/18 06:10 Fibrinogen 114.0 mg/dL (238-498) L 01/22/18 06:45 - ....Imaging Other: Report Reviewed Assessment/Plan Pt is a 62 yo F, with PMH of GERD (controlled with omeprazole) and past alcohol abuse (~1 year sober from detox), h/o smoking; h/o depression, noncompliance, who is presenting with weight loss x 2 months, general weakness; abdominal pain , and decreased PO food intake; anemia GI bleed, portal vein thrombosis GI and heme onc f/u; MRI and EGD results noted and d/w pt c/w advanced liver cirrhosis portal vein thrombus and esophageal varices PO PPI, IVF IV clinimix DVT pfx OOB with assistance; TEDs and SCDs GI f/u - high CEA, anemia; colonoscopy? AA referral and psychiatry f/u after DC home; complete etoh abstinence d/w pt f/u labs falls decubs DVT pfx; d/s pt do not get OOB alone, call for help if needs OOB prognosis guarded d/w pt and staff
[2018-01-28 07:41] LABS: INR 1.41 (0.83-1.09); PROTHROMBIN TIME (PATIENT) 16.7 SEC (9.7-13.0)
[2018-01-28 08:08] LABS: ALBUMIN 1.7 g/dl (3.4-5.0); ALK PHOS 132 U/L (45-117); ANION GAP 4 MMOL/L (8-16); BILIRUBIN,TOTAL 0.8 mg/dL (0.2-1); BLOOD UREA NITROGEN 7 mg/dL (7-18); CHLORIDE 104 mmol/L (98-107); CO2 28 mmol/L (21-32); CREATININE 0.4 mg/dL (0.55-1.3); GLUCOSE,RANDOM 76 mg/dL (74-106); MAGNESIUM 1.5 mg/dL (1.8-2.4); POTASSIUM 4.4 mmol/L (3.5-5.1); SGOT/AST 105 U/L (15-37); SGPT/ALT 22 U/L (13-61); SODIUM 136 mmol/L (136-145); TOT PROT 6.1 g/dl (6.4-8.2)
[2018-01-28] MEDS: oxyCODONE HCL 5 MG TABLET PO PRN ×3 (08:53→23:42)
[2018-01-28] MEDS: POTASSIUM CHLORIDE TABS 10 MEQ TABLET.ER (FP) PO SCH ×2 (09:00→22:16)
[2018-01-28] MEDS: NICOTINE 7 MG/24 HOURS TOPICAL PATCH TD SCH (09:00)
[2018-01-28] MEDS: FAMOTIDINE 20 MG/50 ML IVPB 20 MG/50 ML MG IVPB SCH ×2 (09:00→22:16)
[2018-01-28 11:59] LABS: ANISOCYTOSIS 2+; MACROCYTOSIS 1+; PLATELET ESTIMATE DECREASED; TARGET CELLS 1+
[2018-01-28] MEDS: AMINO ACIDS 4.25%/D5W 1,000 ML IV SCH (16:13)
--- NOTE | 2018-01-29 06:54 | PN ---
Progress Note, Physician Chief Complaint: no appetite, said last night she had again N/V after dinner awaiting GI further input - Current Medication List Current Medications: Active Medications Amino Acids (Clinimix -) 1,000 mls @ 50 mls/hr IV ASDIR [facility] Last Admin: 01/28/18 16:13 Dose: 50 mls/hr Famotidine/Sodium Chloride (Pepcid 20 Mg Premixed Ivpb -) 20 mg in 50 mls @ 100 mls/hr IVPB BID [facility] Last Admin: 01/28/18 22:16 Dose: 100 mls/hr Nicotine (Nicoderm Patch -) 7 mg TD DAILY [facility] Last Admin: 01/28/18 09:00 Dose: 7 mg Oxycodone HCl (Roxicodone -) 5 mg PO Q6H PRN PRN Reason: PAIN- Last Admin: 01/28/18 23:42 Dose: 5 mg Potassium Chloride (K-Dur -) 20 meq PO BID [facility] Last Admin: 01/28/18 22:16 Dose: 20 meq - Objective Vital Signs: Vital Signs Temperature 98.7 F 01/29/18 06:00 Pulse Rate 98 H 01/29/18 06:00 Respiratory Rate 20 01/29/18 06:00 Blood Pressure 92/56 L 01/29/18 06:00 O2 Sat by Pulse Oximetry (%) 96 01/28/18 20:23 Constitutional: Yes: No Distress, Calm Eyes: Yes: Conjunctiva Clear HENT: Yes: Atraumatic Neck: Yes: Supple Cardiovascular: Yes: Regular Rate and Rhythm Respiratory: Yes: CTA Bilaterally Gastrointestinal: Yes: Soft, Hepatomegaly. No: Distention Genitourinary: No: CVA Tenderness - Left, CVA Tenderness - Right, Hematuria Musculoskeletal: No: Joint Stiffness, Joint Swelling Edema: No Integumentary: No: Rash, Venous Stasis Changes Neurological: Yes: WNL, Alert, Oriented ...Motor Strength: WNL Psychiatric: Yes: WNL, Alert, Oriented. No: Agitated, Suicidal Ideation Labs: CBC, BMP 01/28/18 06:00 01/28/18 06:00 INR, PTT INR 1.41 (0.83-1.09) H 01/28/18 06:00 Fibrinogen 114.0 mg/dL (238-498) L 01/22/18 06:45 - ....Imaging Other: Report Reviewed Assessment/Plan Pt is a 62 yo F, with PMH of GERD (controlled with omeprazole) and past alcohol abuse (~1 year sober from detox), h/o smoking; h/o depression, noncompliance, who is presenting with weight loss, general weakness; abdominal pain, and decreased PO food intake; anemia GI bleed, portal vein thrombosis GI and heme onc f/u; MRI and EGD results noted and d/w pt c/w advanced liver cirrhosis portal vein thrombus and esophageal varices PO PPI, IVF IV clinimix DVT pfx OOB with assistance; TEDs and SCDs GI f/u - high CEA, anemia; colonoscopy? AA referral and psychiatry f/u after DC home; complete etoh abstinence d/w pt f/u labs falls decubs DVT pfx; d/s pt do not get OOB alone, call for help if needs OOB prognosis guarded d/w pt and staff
[2018-01-29 07:04] LABS: EOS % 0.8 % (0-4.5); HEMOGLOBIN 8.7 GM/dL (10.7-15.3); LYMPH % 23.1 % (8-40); MCH 32.3 pg (25.7-33.7); MCHC 32.2 g/dl (32.0-36.0); MEAN CELL VOLUME 100.3 fl (80-96); MONO % 19.2 % (3.8-10.2); NEUT % 55.9 % (42.8-82.8); PLATELET COUNT 142 K/MM3 (134-434); RBC 2.69 M/mm3 (3.60-5.2); RDW 19.4 % (11.6-15.6); WHITE BLOOD COUNT 9.2 K/mm3 (4.0-10.0)
[2018-01-29 07:54] LABS: ALBUMIN 1.7 g/dl (3.4-5.0); ALK PHOS 153 U/L (45-117); ANION GAP 8 MMOL/L (8-16); BILIRUBIN,TOTAL 0.7 mg/dL (0.2-1); BLOOD UREA NITROGEN 8 mg/dL (7-18); CALCIUM 8.1 mg/dL (8.5-10.1); CHLORIDE 104 mmol/L (98-107); CO2 25 mmol/L (21-32); CREATININE 0.4 mg/dL (0.55-1.3); GLUCOSE,RANDOM 85 mg/dL (74-106); SGOT/AST 153 U/L (15-37); SGPT/ALT 35 U/L (13-61); SODIUM 137 mmol/L (136-145); TOT PROT 5.7 g/dl (6.4-8.2)
[2018-01-29] MEDS ORDERED: PT OWN MED DRAWER 7, Y5N ONE (10:21)
[2018-01-29] MEDS: oxyCODONE HCL 5 MG TABLET PO PRN ×2 (11:01→22:50)
[2018-01-29] MEDS: NICOTINE 7 MG/24 HOURS TOPICAL PATCH TD SCH (11:02)
[2018-01-29] MEDS: FAMOTIDINE 20 MG/50 ML IVPB 20 MG/50 ML MG IVPB SCH ×2 (11:02→21:17)
[2018-01-29] MEDS: POTASSIUM CHLORIDE TABS 10 MEQ TABLET.ER (FP) PO SCH ×2 (11:02→21:21)
[2018-01-29] MEDS: AMINO ACIDS 4.25%/D5W 1,000 ML IV SCH (15:19)
[2018-01-30 07:17] LABS: BASO % 0.9 % (0-2.0); EOS % 0.6 % (0-4.5); HEMATOCRIT 29.1 % (32.4-45.2); HEMOGLOBIN 9.3 GM/dL (10.7-15.3); LYMPH % 27.5 % (8-40); MCHC 31.9 g/dl (32.0-36.0); MEAN CELL VOLUME 100.5 fl (80-96); MEAN PLT VOLUME 10.2 fl (7.5-11.1); MONO % 20.2 % (3.8-10.2); NEUT % 50.8 % (42.8-82.8); PLATELET COUNT 163 K/MM3 (134-434); RDW 19.1 % (11.6-15.6)
[2018-01-30 07:40] LABS: ALBUMIN 1.9 g/dl (3.4-5.0); ALK PHOS 151 U/L (45-117); ANION GAP 7 MMOL/L (8-16); BILIRUBIN,TOTAL 0.7 mg/dL (0.2-1); BLOOD UREA NITROGEN 7 mg/dL (7-18); CALCIUM 8.4 mg/dL (8.5-10.1); CHLORIDE 104 mmol/L (98-107); CO2 27 mmol/L (21-32); CREATININE 0.4 mg/dL (0.55-1.3); GLUCOSE,RANDOM 82 mg/dL (74-106); POTASSIUM 4.1 mmol/L (3.5-5.1); SGOT/AST 135 U/L (15-37); SGPT/ALT 34 U/L (13-61); SODIUM 138 mmol/L (136-145); TOT PROT 6.4 g/dl (6.4-8.2)
--- NOTE | 2018-01-30 09:30 | PN ---
Progress Note, Physician Chief Complaint: ate better but has some nausea; awaiting GI input - Current Medication List Current Medications: Active Medications Amino Acids (Clinimix -) 1,000 mls @ 50 mls/hr IV ASDIR [facility] Last Admin: 01/29/18 15:19 Dose: 50 mls/hr Famotidine/Sodium Chloride (Pepcid 20 Mg Premixed Ivpb -) 20 mg in 50 mls @ 100 mls/hr IVPB BID [facility] Last Admin: 01/29/18 21:17 Dose: 100 mls/hr Nicotine (Nicoderm Patch -) 7 mg TD DAILY [facility] Last Admin: 01/29/18 11:02 Dose: 7 mg Oxycodone HCl (Roxicodone -) 5 mg PO Q6H PRN PRN Reason: PAIN- Last Admin: 01/29/18 22:50 Dose: 5 mg Potassium Chloride (K-Dur -) 20 meq PO BID [facility] Last Admin: 01/29/18 21:21 Dose: 20 meq - Objective Vital Signs: Vital Signs Temperature 98.8 F 01/30/18 01:00 Pulse Rate 97 H 01/30/18 01:00 Respiratory Rate 20 01/30/18 01:00 Blood Pressure 91/51 L 01/30/18 01:00 O2 Sat by Pulse Oximetry (%) 96 01/29/18 20:49 Constitutional: Yes: No Distress, Calm Eyes: Yes: Conjunctiva Clear HENT: Yes: Atraumatic Neck: Yes: Supple Cardiovascular: Yes: Regular Rate and Rhythm Respiratory: Yes: CTA Bilaterally Gastrointestinal: Yes: Soft, Hepatomegaly. No: Distention Genitourinary: No: Hematuria Musculoskeletal: No: Joint Stiffness, Joint Swelling Extremities: No: Cold, Cool, Cyanosis Edema: No Integumentary: No: Rash, Venous Stasis Changes Neurological: Yes: WNL, Alert, Oriented ...Motor Strength: WNL Psychiatric: Yes: WNL, Alert, Oriented. No: Agitated, Suicidal Ideation Labs: CBC, BMP 01/30/18 06:30 01/30/18 06:30 INR, PTT INR 1.41 (0.83-1.09) H 01/28/18 06:00 Fibrinogen 114.0 mg/dL (238-498) L 01/22/18 06:45 - ....Imaging Other: Report Reviewed Assessment/Plan Pt is a 62 yo F, with PMH of GERD (controlled with omeprazole) and past alcohol abuse (~1 year sober from detox), h/o smoking; h/o depression, noncompliance, admitted with weight loss, general weakness; abdominal pain, and decreased PO food intake; anemia GI bleed, portal vein thrombosis GI and heme onc f/u; MRI and EGD results noted and d/w pt c/w advanced liver cirrhosis portal vein thrombus and esophageal varices; no AC b/o bleed risk, anemia, varices. PO PPI, IVF IV clinimix DVT pfx OOB with assistance; TEDs and SCDs GI f/u - high CEA, anemia; colonoscopy? f/u labs falls decubs DVT pfx; d/s pt do not get OOB alone, call for help if needs OOB prognosis guarded d/w pt and staff
[2018-01-30] MEDS: NICOTINE 7 MG/24 HOURS TOPICAL PATCH TD SCH (09:35)
[2018-01-30] MEDS: POTASSIUM CHLORIDE TABS 10 MEQ TABLET.ER (FP) PO SCH ×2 (09:35→23:01)
[2018-01-30] MEDS: FAMOTIDINE 20 MG/50 ML IVPB 20 MG/50 ML MG IVPB SCH ×3 (09:35→23:01)
[2018-01-30] MEDS: oxyCODONE HCL 5 MG TABLET PO PRN ×3 (09:45→23:36)
[2018-01-30] MEDS: AMINO ACIDS 4.25%/D5W 1,000 ML IV SCH ×2 (10:21→16:53)
[2018-01-30 10:49] LABS: ANISOCYTOSIS 1+; MACROCYTOSIS 1+; OVALOCYTE 1+; TARGET CELLS 1+
[2018-01-30 11:34] LABS: PLATELET ESTIMATE ADEQUATE
--- NOTE | 2018-01-30 13:47 | PN ---
Progress Note (short form) - Note Progress Note: PROGRESS NOTE FOR HEMATOLOGY/ONCOLOGY Patient seen and examined by me at bedside No acute events overnight Patient reports she is tolerating food if she eats in small amounts Denies any fever, chills, abdominal pain, chest pain, palpitations, shortness of breath, headaches, hematuria, hematochezia, dysuria Vital Signs Temperature 98.3 F 01/30/18 13:30 Pulse Rate 95 H 01/30/18 13:30 Respiratory Rate 20 01/30/18 13:30 Blood Pressure 90/62 01/30/18 13:30 O2 Sat by Pulse Oximetry (%) 96 01/30/18 09:00 PHYSICAL EXAMINATION: GENERAL: Awake, Alert, oriented x3 and in no acute distress HEENT: PERRL, EOMI, No oral thrush CARDIO: RRR, normal s1 and s2 with no m/r/g LUNGS: Decreased breath sounds throughout lung bases bilaterally ABDOMEN: Soft, distended, nontender, normo active bowel sounds EXTREMITIES: No peripheral edema SKIN: No lesions or rashes Laboratory Test 01/30/18 06:30 01/30/18 06:30 ASSESSMENT AND PLAN: Patient is a 62 year old female with a PMHx of Alcohol abuse who presented for nausea, vomiting, weight loss, abdominal pain and was found to have ascites and Portal vein thrombosis. Problem List: Portal vein thrombosis Hepatocellular disease Ascites- s/p paracentesis Thrombocytopenia mild elevation of CEA Elevation of ferritin Alcohol abuse GERD Grade I esophageal varices Portal Hypertensive Gastropathy PLAN: -In light of CEA elevation, recent weight loss, Anemia and positive stool guaiac , patient will need colonoscopy and further evaluation for malignancy. Patient awaiting Colonoscopy. -Patient has coagulopathy with INR initially >2 and now has Varices with Portal vein thrombosis. Will need to discuss with GI about the risks and benefits of placing patient on Anticoagulation.
--- NOTE | 2018-01-30 14:10 | PN ---
Progress Note, Physician History of Present Illness: Pt seen/examined at bedside, feeling better, less nausea, tolerating breakfast and lunch, denies vomiting. Still with intermittent lower abdominal pain, mildly distended though improved. Diarrhea also better, states she had formed bm , no blood. - Current Medication List Current Medications: Active Medications Amino Acids (Clinimix -) 1,000 mls @ 50 mls/hr IV ASDIR [facility] Last Admin: 01/30/18 10:21 Dose: 50 mls/hr Famotidine/Sodium Chloride (Pepcid 20 Mg Premixed Ivpb -) 20 mg in 50 mls @ 100 mls/hr IVPB BID [facility] Last Admin: 01/30/18 09:37 Dose: Not Given Nicotine (Nicoderm Patch -) 7 mg TD DAILY [facility] Last Admin: 01/30/18 09:35 Dose: 7 mg Oxycodone HCl (Roxicodone -) 5 mg PO Q6H PRN PRN Reason: PAIN- Last Admin: 01/30/18 09:45 Dose: 5 mg Potassium Chloride (K-Dur -) 20 meq PO BID [facility] Last Admin: 01/30/18 09:35 Dose: 20 meq - Objective Vital Signs: Vital Signs Temperature 98.3 F 01/30/18 13:30 Pulse Rate 95 H 01/30/18 13:30 Respiratory Rate 20 01/30/18 13:30 Blood Pressure 90/62 01/30/18 13:30 O2 Sat by Pulse Oximetry (%) 96 01/30/18 09:00 Constitutional: Yes: No Distress, Calm Eyes: Yes: Conjunctiva Clear HENT: Yes: Atraumatic, Normocephalic Cardiovascular: Yes: Regular Rate and Rhythm Respiratory: Yes: Regular, CTA Bilaterally Gastrointestinal: Yes: Soft, Distention (mildly distended), Tenderness (mildly tender in lower abdomen on palpation, no rebound, guarding or rigidity) Edema: No Labs: CBC, BMP 01/30/18 06:30 01/30/18 06:30 INR, PTT INR 1.41 (0.83-1.09) H 01/28/18 06:00 Fibrinogen 114.0 mg/dL (238-498) L 01/22/18 06:45 Problem List - Problems (1) Alcoholic liver disease Code(s): K70.9 - ALCOHOLIC LIVER DISEASE, UNSPECIFIED (2) Ascites Code(s): R18.8 - OTHER ASCITES (3) Weight loss of more than 10% body weight Assessment/Plan: Also with nonocclusive portal vein thrombus and ascites s/p paracentesis ( cytology negative for malignancy) most likely secondary to alcoholic liver disease/cirrhosis with portal hypertension, however with associated weight loss and guaiac positive will need to exclude underlying malignancy. No overt GI bleeding. EGD on 01/25/18 revealing grade 1 esophageal varices and portal htn gastropathy, otherwise unremarkable. Last colonoscopy more than 3 years ago. Positive family h/o colon ca (pts aunt diagnosed 70s). -Plan for colonoscopy tentatively on Tuesday (02/01/18) for further evaluation , particularly in setting of mild CEA elevation (though may be nonspecific) -Risks/benefits of colonoscopy were discussed with patient and she wants to proceed. -Check daily CBC, CMP, PT/INR (aim INR <1.5, plt >50) -Clear liquid diet tomorrow (01/31/18) -Start colytely 4L tomorrow (01/31/18) at 5pm -Dulcolax 20mg po tomorrow at 5pm -NPOpMN tomorrow in preparation for colonoscopy on Tuesday -Spoke with lab regarding checking albumin on ascitic fluid (does not appear to have been checked on prior sample), state they will confirm if sample still available and inform us. Plan discussed with medicine attending, Dr. Lanza, and nursing staff. Code(s): R63.4 - ABNORMAL WEIGHT LOSS
[2018-01-31] MEDS: AMINO ACIDS 4.25%/D5W 1,000 ML IV SCH (03:56)
[2018-01-31] MEDS: oxyCODONE HCL 5 MG TABLET PO PRN ×3 (06:20→20:30)
--- NOTE | 2018-01-31 06:56 | PN ---
Progress Note, Physician Chief Complaint: d/w GI will have colonoscopy tomorrow; clear fluid diet; NPO after midnight d/w pt she agreed also ordered chest CT r/o mass, h/o long smoking; pt strongly advised to stop tob abd to abstein completely from etoh - Current Medication List Current Medications: Active Medications Bisacodyl (Dulcolax -) 20 mg PO ONCE ONE Stop: 01/31/18 18:01 Famotidine/Sodium Chloride (Pepcid 20 Mg Premixed Ivpb -) 20 mg in 50 mls @ 100 mls/hr IVPB BID [facility] Last Admin: 01/30/18 23:01 Dose: 100 mls/hr Amino Acids (Clinimix -) 1,000 mls @ 50 mls/hr IV Q20H [facility] Last Admin: 01/31/18 03:56 Dose: 50 mls/hr Nicotine (Nicoderm Patch -) 7 mg TD DAILY [facility] Last Admin: 01/30/18 09:35 Dose: 7 mg Oxycodone HCl (Roxicodone -) 5 mg PO Q6H PRN PRN Reason: PAIN- Last Admin: 01/31/18 06:20 Dose: 5 mg Potassium Chloride (K-Dur -) 20 meq PO BID [facility] Last Admin: 01/30/18 23:01 Dose: 20 meq - Objective Vital Signs: Vital Signs Temperature 98.3 F 01/31/18 06:01 Pulse Rate 89 01/31/18 06:01 Respiratory Rate 20 01/31/18 06:01 Blood Pressure 90/51 L 01/31/18 06:01 O2 Sat by Pulse Oximetry (%) 95 01/30/18 21:00 Constitutional: Yes: No Distress, Calm Eyes: Yes: Conjunctiva Clear HENT: Yes: Atraumatic Neck: Yes: Supple Cardiovascular: Yes: Regular Rate and Rhythm Respiratory: Yes: CTA Bilaterally Gastrointestinal: Yes: Soft, Hepatomegaly Genitourinary: No: CVA Tenderness - Left, CVA Tenderness - Right Musculoskeletal: No: Joint Stiffness, Joint Swelling Extremities: No: Cold, Cool, Cyanosis Edema: No Integumentary: No: Rash, Venous Stasis Changes Neurological: Yes: WNL, Alert, Oriented ...Motor Strength: WNL Psychiatric: Yes: WNL, Alert, Oriented. No: Agitated, Suicidal Ideation Labs: CBC, BMP 01/30/18 06:30 01/30/18 06:30 INR, PTT INR 1.41 (0.83-1.09) H 01/28/18 06:00 Fibrinogen 114.0 mg/dL (238-498) L 01/22/18 06:45 - ....Imaging Other: Report Reviewed Assessment/Plan Pt is a 62 yo F, with PMH of GERD (controlled with omeprazole) and past alcohol abuse (~1 year sober from detox), h/o smoking; h/o depression, noncompliance, admitted with weight loss, general weakness; abdominal pain, and decreased PO food intake; anemia GI bleed, portal vein thrombosis GI and heme onc f/u; c/w advanced liver cirrhosis portal vein thrombus and esophageal varices; no AC b/o bleed risk, anemia, varices. PO PPI, IVF IV clinimix DVT pfx OOB with assistance; TEDs and SCDs GI f/u - high CEA, anemia; colonoscopy in am, prep today f/u labs, chest CT as ordered falls decubs DVT pfx; d/s pt do not get OOB alone, call for help if needs OOB prognosis guarded d/w pt and staff
[2018-01-31] MEDS: FAMOTIDINE 20 MG/50 ML IVPB 20 MG/50 ML MG IVPB SCH ×2 (10:58→21:39)
[2018-01-31] MEDS: POTASSIUM CHLORIDE TABS 10 MEQ TABLET.ER (FP) PO SCH ×2 (10:58→21:39)
[2018-01-31] MEDS: NICOTINE 7 MG/24 HOURS TOPICAL PATCH TD SCH (10:58)
--- NOTE | 2018-01-31 14:49 | PN ---
Progress Note (short form) - Note Progress Note: Patient sen and examined Complains of some pain Last Vital Signs Temp Pulse Resp BP Pulse Ox 98.3 F 89 20 90/51 L 95 01/31/18 06:01 01/31/18 06:01 01/31/18 08:46 01/31/18 06:01 01/31/18 08:46 HEENT: TOI, EOM Intact Oropharynx: No thrush, No mucositis, dentures Cor: RSR, No murmurs, No gallops Lungs: Clear to P&A Abd: Soft, Normal bowel sounds, No organomegaly, mild distension Ext:No significant edema, SCD Skin: No rashes, Integument intact CBC, BMP 01/30/18 06:30 01/30/18 06:30 Current Medications Generic Name Dose Route Start Last Admin Trade Name Freq PRN Reason Stop Dose Admin Bisacodyl 20 mg 01/31/18 18:00 Dulcolax - PO 01/31/18 18:01 ONCE ONE Famotidine/Sodium Chloride 20 mg in 50 mls @ 100 mls/hr 01/22/18 22:00 10:58 Pepcid 20 Mg Premixed Ivpb - IVPB 100 mls/hr BID KISHA Administration Amino Acids 1,000 mls @ 50 mls/hr 01/31/18 04:00 01/31/18 03:56 Clinimix - IV 50 mls/hr Q20H KISHA Administration Nicotine 7 mg 01/21/18 10:00 01/31/18 10:58 Nicoderm Patch - TD 7 mg DAILY KISHA Administration Oxycodone HCl 5 mg 01/25/18 19:04 01/31/18 14:28 Roxicodone - PO 5 mg Q6H PRN Administration PAIN- Potassium Chloride 20 meq 01/24/18 22:00 01/31/18 10:58 K-Dur - PO 20 meq BID KISHA Administration Impression: Portal vein thrombosis Hepatocellular disease Ascites- s/p paracentesis Thrombocytopenia mild elevation of CEA Elevation of ferritin Alcohol abuse GERD Grade I esophageal varices Portal Hypertensive Gastropathy For colonoscopy in view of heme positive stool , elevation of CEA, weight loss Holding a/c in light of varices and coagulopathy from liver disease.
[2018-01-31] MEDS ORDERED: PEG3350/SOD SULF,BICARB,CL/KCL 4,000 ML SOLN.RECON PO ONE ×2 (17:00→17:36)
[2018-01-31 17:01] VITALS: BMI 19.2
--- NOTE | 2018-01-31 17:01 | ECHO ---
Name: IVETTE COHENRachael DELORES Exam:Adult Echocardiogram Study Date: 01/31/2018 08:31 AM Age: 62 yrs Reason For Study: R/O CHF Height: 62 in Weight: 104 lb BSA: 1.4 m2 MMode/2D Measurements & Calculations IVSd: 0.73 cm Ao root diam: 2.7 cm LVIDd: 4.4 cm LA dimension: 3.5 cm LVIDs: 3.1 cm LVPWd: 0.71 cm EDV(Teich): 88.5 ml ESV(Teich): 38.9 ml Doppler Measurements & Calculations MV E max arnulfo: 98.2 cm/sec TR max arnulfo: 223.1 cm/sec MV A max arnulfo: 77.0 cm/sec TR max P.9 mmHg MV E/A: 1.3 MV dec time: 0.16 sec Med Peak E' Arnulfo: 8.6 cm/sec Med E/e': 11.5 Lat Peak E' Arnulfo: 9.5 cm/sec Lat E/e': 10.4 Procedure A two-dimensional transthoracic echocardiogram with color flow and Doppler was performed. The patient was in normal sinus rhythm during the exam. Left Ventricle The left ventricular size, thickness and function are normal. Right Ventricle The right ventricle is normal in size and function. Atria Normal left and right atrial size and function. Mitral Valve The mitral valve is normal. There is trace mitral regurgitation. Tricuspid Valve The tricuspid valve is normal. There is mild tricuspid regurgitation. Aortic Valve The aortic valve is normal in structure and function. Pulmonic Valve The pulmonic valve is not well visualized. Great Vessels The aortic root is normal size. Normal aortic arch, descending and ascending aorta. Pericardium/Pleura There is no pericardial effusion. Interpretation Summary A two-dimensional transthoracic echocardiogram with color flow and Doppler was performed. The patient was in normal sinus rhythm during the exam. The left ventricular size, thickness and function are normal The right ventricle is normal in size and function. Normal left and right atrial size and function. The mitral valve is normal. There is trace mitral regurgitation. The tricuspid valve is normal. There is mild tricuspid regurgitation. The aortic valve is normal in structure and function. The pulmonic valve is not well visualized. The aortic root is normal size. Normal aortic arch, descending and ascending aorta There is no pericardial effusion. Carlton Shaneg 01/31/2018 05:00 PM
[2018-01-31] MEDS ORDERED: BISACODYL 5 MG TABLET.DR (FP) PO ONE (18:00)
[2018-02-01] MEDS: oxyCODONE HCL 5 MG TABLET PO PRN ×2 (08:39→16:40)
--- NOTE | 2018-02-01 09:35 | PN ---
Progress Note, Physician Chief Complaint: in bed NAD awaiting colonoscopy chest CT and echo noted and d/w pt - Current Medication List Current Medications: Active Medications Famotidine/Sodium Chloride (Pepcid 20 Mg Premixed Ivpb -) 20 mg in 50 mls @ 100 mls/hr IVPB BID [facility] Last Admin: 01/31/18 21:39 Dose: 100 mls/hr Amino Acids (Clinimix -) 1,000 mls @ 50 mls/hr IV Q20H [facility] Last Admin: 02/01/18 00:00 Dose: 50 mls/hr Nicotine (Nicoderm Patch -) 7 mg TD DAILY [facility] Last Admin: 01/31/18 10:58 Dose: 7 mg Oxycodone HCl (Roxicodone -) 5 mg PO Q6H PRN PRN Reason: PAIN- Last Admin: 02/01/18 08:39 Dose: 5 mg Potassium Chloride (K-Dur -) 20 meq PO BID [facility] Last Admin: 01/31/18 21:39 Dose: 20 meq - Objective Vital Signs: Vital Signs Temperature 99.4 F 02/01/18 06:00 Pulse Rate 95 H 02/01/18 06:00 Respiratory Rate 20 02/01/18 06:00 Blood Pressure 94/50 L 02/01/18 06:00 O2 Sat by Pulse Oximetry (%) 95 01/31/18 21:00 Constitutional: Yes: No Distress, Calm Eyes: Yes: Conjunctiva Clear HENT: Yes: Atraumatic Neck: Yes: Supple Cardiovascular: Yes: Regular Rate and Rhythm Respiratory: Yes: CTA Bilaterally Gastrointestinal: Yes: Soft. No: Distention Genitourinary: No: CVA Tenderness - Left, CVA Tenderness - Right Extremities: No: Cold, Cool, Cyanosis Edema: No Integumentary: No: Rash, Venous Stasis Changes Neurological: Yes: WNL, Alert, Oriented ...Motor Strength: WNL Psychiatric: Yes: WNL, Alert, Oriented. No: Agitated, Suicidal Ideation Labs: CBC, BMP 01/30/18 06:30 01/30/18 06:30 INR, PTT INR 1.41 (0.83-1.09) H 01/28/18 06:00 Fibrinogen 114.0 mg/dL (238-498) L 01/22/18 06:45 - ....Imaging Other: Report Reviewed Assessment/Plan Pt is a 62 yo F, with PMH of GERD (controlled with omeprazole) and past alcohol abuse (~1 year sober from detox), h/o smoking; h/o depression, noncompliance, admitted with weight loss, general weakness; abdominal pain, and decreased PO food intake; anemia GI bleed, portal vein thrombosis GI and heme onc f/u; c/w advanced liver cirrhosis portal vein thrombus and esophageal varices; no AC b/o bleed risk, anemia, varices. GI f/u - high CEA, anemia; colonoscopy per GI falls decubs DVT pfx; d/w pt and staff
[2018-02-01] MEDS: NICOTINE 7 MG/24 HOURS TOPICAL PATCH TD SCH (09:49)
[2018-02-01] MEDS: POTASSIUM CHLORIDE TABS 10 MEQ TABLET.ER (FP) PO SCH ×2 (09:49→21:32)
[2018-02-01] MEDS: FAMOTIDINE 20 MG/50 ML IVPB 20 MG/50 ML MG IVPB SCH ×2 (09:49→21:32)
[2018-02-01] MEDS ORDERED: INSULIN (NOVOLOG) ASPART 100 UNITS/ML 10ML VIAL ONE (11:31)
--- NOTE | 2018-02-01 11:36 | PN ---
Progress Note (short form) - Note Progress Note: PROGRESS NOTE FOR HEMATOLOGY/ONCOLOGY Patient seen and examined by me at bedside No acute events overnight Plans for colonoscopy this afternoon Denies any fever, chills, abdominal pain, chest pain, palpitations, shortness of breath, headaches, hematuria, hematochezia, dysuria Vital Signs Temperature 98.6 F 02/01/18 10:00 Pulse Rate 98 H 02/01/18 10:00 Respiratory Rate 20 02/01/18 10:00 Blood Pressure 107/67 02/01/18 10:00 O2 Sat by Pulse Oximetry (%) 98 02/01/18 09:00 PHYSICAL EXAMINATION: GENERAL: Awake, Alert, oriented x3 and in no acute distress HEENT: PERRL, EOMI, No oral thrush CARDIO: RRR, normal s1 and s2 with no m/r/g LUNGS: Decreased breath sounds throughout lung bases bilaterally ABDOMEN: Soft, distended, nontender, normo active bowel sounds EXTREMITIES: No peripheral edema SKIN: No lesions or rashes ASSESSMENT AND PLAN: Patient is a 62 year old female with a PMHx of Alcohol abuse who presented for nausea, vomiting, weight loss, abdominal pain and was found to have ascites and Portal vein thrombosis. Problem List: Portal vein thrombosis Hepatocellular disease Ascites- s/p paracentesis Thrombocytopenia mild elevation of CEA Elevation of ferritin Alcohol abuse GERD Grade I esophageal varices Portal Hypertensive Gastropathy PLAN: -Patient for colonoscopy today in light of CEA elevation, recent weight loss, Anemia and positive stool guaiac -Holding anticoagulation in light of varices and coagulopathy from liver disease.
--- NOTE | 2018-02-01 17:44 | PN ---
Progress Note (short form) - Note Progress Note: Brief GI follow up note Pt feeling better, abdominal pain, n/v improved. Colonoscopy performed today revealing diverticulosis, diminutive sigmoid colon polyp (biopsied) and internal /external hemorrhoids, otherwise unremarkable. On examination: Pt appears comfortable Abd softly distended, nontender Labs reviewed. Assessment/plan: 62yo female h/o etoh abuse with nonocclusive portal vein thrombus and ascites s/ p paracentesis (cytology negative for malignancy) most likely secondary to alcoholic liver disease/cirrhosis with portal hypertension, however with associated weight loss and guaiac positive will need to exclude underlying malignancy. No overt GI bleeding. MRCP revealing fatty liver infiltration otherwise no mass lesions seen. EGD on 01/25/18 revealing grade 1 esophageal varices and portal htn gastropathy, otherwise unremarkable. Colonoscopy performed today revealing diverticulosis, diminutive sigmoid colon polyp ( biopsied) and internal/external hemorrhoids, otherwise unremarkable. Fluid albumin result noted, SAAG >1.1 consistent with portal HTN. -Resume previous diet as tolerated (2gm Na) -Daily CBC, CMP, PT/INR -Monitor LFT trend -Check HBsAb to assess immunity status -Check LIZANDRO, ASMA, AMA for completion Pending disposition, recommend outpatient GI follow up Discussed with medicine team. Problem List - Problems (1) Alcoholic liver disease Code(s): K70.9 - ALCOHOLIC LIVER DISEASE, UNSPECIFIED (2) Ascites Code(s): R18.8 - OTHER ASCITES (3) Weight loss of more than 10% body weight Code(s): R63.4 - ABNORMAL WEIGHT LOSS
[2018-02-01] MEDS: AMINO ACIDS 4.25%/D5W 1,000 ML IV SCH ×2 (21:33)
--- NOTE | 2018-02-02 07:17 | PN ---
Progress Note, Physician - Current Medication List Current Medications: Active Medications Famotidine/Sodium Chloride (Pepcid 20 Mg Premixed Ivpb -) 20 mg in 50 mls @ 100 mls/hr IVPB [facility]ID [facility] Last Admin: 02/01/18 21:32 Dose: 100 mls/hr Amino Acids (Clinimix -) 1,000 mls @ 50 mls/hr IV Q20H [facility] Last Admin: 02/01/18 21:33 Dose: 50 mls/hr Nicotine (Nicoderm Patch -) 7 mg TD DAILY [facility] Last Admin: 02/01/18 09:49 Dose: 7 mg Oxycodone HCl (Roxicodone -) 5 mg PO Q6H PRN PRN Reason: PAIN- Last Admin: 02/01/18 16:40 Dose: 5 mg Potassium Chloride (K-Dur -) 20 meq PO BID [facility] Last Admin: 02/01/18 21:32 Dose: 20 meq - Objective Vital Signs: Vital Signs Temperature 98.2 F 02/02/18 05:56 Pulse Rate 92 H 02/02/18 05:56 Respiratory Rate 18 02/02/18 05:56 Blood Pressure 98/49 L 02/02/18 05:56 O2 Sat by Pulse Oximetry (%) 99 02/01/18 21:00 Labs: CBC, BMP 01/30/18 06:30 01/30/18 06:30 INR, PTT INR 1.41 (0.83-1.09) H 01/28/18 06:00 Fibrinogen 114.0 mg/dL (238-498) L 01/22/18 06:45
[2018-02-02] MEDS: oxyCODONE HCL 5 MG TABLET PO PRN (07:31)
[2018-02-02 09:00] VITALS: BP 112/69; PULSE 96; TEMP 98.3
[2018-02-02] MEDS: FAMOTIDINE 20 MG/50 ML IVPB 20 MG/50 ML MG IVPB SCH (09:30)
[2018-02-02] MEDS: NICOTINE 7 MG/24 HOURS TOPICAL PATCH TD SCH (09:31)
[2018-02-02] MEDS: POTASSIUM CHLORIDE TABS 10 MEQ TABLET.ER (FP) PO SCH (09:31)
--- NOTE | 2018-02-02 09:32 | DS ---
Physical Examination Vital Signs: Vital Signs Temperature 98.3 F 02/02/18 08:57 Pulse Rate 96 H 02/02/18 08:57 Respiratory Rate 20 02/02/18 09:00 Blood Pressure 112/69 02/02/18 08:57 O2 Sat by Pulse Oximetry (%) 100 02/02/18 09:00 Findings/Remarks: s/p colonoscopy no mass found advanced diet which she tolerated well; ready to go home d/w pt f/u needed, meds also outpt AA, stop etoh, stop tobacco her will pick her up Constitutional: Yes: No Distress, Calm Eyes: Yes: Conjunctiva Clear HENT: Yes: Atraumatic Neck: Yes: Supple Cardiovascular: Yes: Regular Rate and Rhythm Respiratory: Yes: CTA Bilaterally Gastrointestinal: Yes: Soft. No: Distention Renal/: No: CVA Tenderness - Left, CVA Tenderness - Right Musculoskeletal: No: Joint Stiffness, Joint Swelling Extremities: No: Cold, Cool, Cyanosis Edema: No Integumentary: No: Rash, Venous Stasis Changes Neurological: Yes: WNL, Alert, Oriented ...Motor Strength: WNL Psychiatric: Yes: WNL, Alert, Oriented. No: Agitated, Suicidal Ideation Labs: CBC, BMP 01/30/18 06:30 01/30/18 06:30 Discharge Summary Reason For Visit: WEIGHT LOSS,MALNUTRITION AND WEAKNESS Current Active Problems Alcoholic liver disease (Acute) Ascites (Acute) Cirrhosis (Acute) Elevated transaminase level (Acute) Malnutrition (Acute) Weakness (Acute) Weight loss of more than 10% body weight (Acute) GERD (gastroesophageal reflux disease) (Chronic) Procedures: Principal: admitted with anemia weight loss; ascites sec to liver cirrhosis Other Procedures: dx with alcoholic liver cirrhosis, transfused PRBC;. seen by GI, heme onc; ascited drained; EGD and colonoscopy per GI Hospital Course: improved with above; diet advanced as tolerated; DC home and f/u as advised; scripts done Condition: Stable - Instructions Diet, Activity, Other Instructions: f/u PCP GI and heme in 1-2 weeks after DC home; RTER if worse or recurrent c/o no smoking; no etoh; AA referral; psychiatry f/u for anxiety/ depression Referrals: Diana Lanza [Staff Physician] - Lisa Cardona DO [Staff Physician] - Roland Flores MD [Staff Physician] - Disposition: HOME - Home Medications Comprehensive Discharge Medication List: Ambulatory Orders Spironolactone [Aldactone] 25 mg PO DAILY #30 tablet 02/02/18
--- NOTE | 2018-02-02 12:13 | PN ---
Progress Note (short form) - Note Progress Note: PROGRESS NOTE FOR HEMATOLOGY/ONCOLOGY Patient seen and examined by me at bedside No acute events overnight Patient for discharge today Denies any fever, chills, abdominal pain, chest pain, palpitations, shortness of breath, headaches, hematuria, hematochezia, dysuria Vital Signs Temperature 98.3 F 02/02/18 08:57 Pulse Rate 96 H 02/02/18 08:57 Respiratory Rate 20 02/02/18 09:00 Blood Pressure 112/69 02/02/18 08:57 O2 Sat by Pulse Oximetry (%) 100 02/02/18 09:00 PHYSICAL EXAMINATION: GENERAL: Awake, Alert, oriented x3 and in no acute distress HEENT: PERRL, EOMI, No oral thrush CARDIO: RRR, normal s1 and s2 with no m/r/g LUNGS: Decreased breath sounds throughout lung bases bilaterally ABDOMEN: Soft, distended, nontender, normo active bowel sounds EXTREMITIES: No peripheral edema SKIN: No lesions or rashes ASSESSMENT AND PLAN: Patient is a 62 year old female with a PMHx of Alcohol abuse who presented for nausea, vomiting, weight loss, abdominal pain and was found to have ascites and Portal vein thrombosis. Problem List: Portal vein thrombosis Hepatocellular disease Ascites- s/p paracentesis Thrombocytopenia mild elevation of CEA Elevation of ferritin Alcohol abuse GERD Grade I esophageal varices Portal Hypertensive Gastropathy PLAN: -S/P paracentesis with cytology negative for malignancy. -EGD done (01/25/2018), which revealed grade I esophageal varices and Portal HTN Gastropathy. -Colonoscopy done yesterday (02/01/18), which revealed diverticulosis, sigmoid polyp (with biopsy taken), and internal/external hemorrhoids. -In light of CEA elevation, recent weight loss, Anemia and positive stool guaiac , patient will need to exclude underlying malignancy. -Will need to follow up with GI and Hematology/oncology office with Dr. Roland or Dr. Flores -Holding anticoagulation in light of varices and coagulopathy from liver disease.
[2018-02-02 12:31] LABS: BODY FLUID ALBUMIN 0.3
--- NOTE | 2018-02-02 16:50 | PATH ---
Surgical Pathology Report Patient Name: DELORES FERREIRA [facility]. Rec. #: [id number] /Age/Gender: 1955 (Age: 62) / F Account: [id number] Location: [facility] MED/SURG Taken: 02/01/2018 Received: 02/01/2018 Reported: 02/02/2018 Physicians: MD Diana Warren M.D. Specimen(s) Received POLYP SIGMOID COLON Clinical History Abdominal pain, weight loss Postoperative diagnosis: Colon polyp Final Diagnosis SIGMOID COLON, POLYP, BIOPSY: HYPERPLASTIC POLYP. Electronically Signed Lisa Bianchi M.D. Gross Description Received in formalin, labeled "biopsy sigmoid colon polyp" are 2 ware, irregular portions of soft tissue measuring 0.2 and 0.4 cm. in greatest dimension. The specimens are submitted in toto in one cassette. 02/01/201802/01/2018
== END 2018-02-02 12:49 | disposition home or self-care (01) | DRG 432 ==
LOC: JER 17:22 → JERBED 22:12 → J7W 01-21 01:27
PROVIDERS: ADMIT Internal Medicine; ATTEND Internal Medicine
PROC: 0W9G3ZX Drainage of Peritoneal Cavity, Percutaneous Approach, Diagnostic (ICD-10-PCS; principal; 2018-01-24)
PROC: 0DJ08ZZ Inspection of Upper Intestinal Tract, Via Natural or Artificial Opening Endoscopic (ICD-10-PCS; 2018-02-01)
PROC: 0DBN8ZX Excision of Sigmoid Colon, Via Natural or Artificial Opening Endoscopic, Diagnostic (ICD-10-PCS; 2018-02-01)
DX: K70.31 Alcoholic cirrhosis of liver with ascites (principal); I81 Portal vein thrombosis; E46 Unspecified protein-calorie malnutrition; D62 Acute posthemorrhagic anemia; I85.00 Esophageal varices without bleeding; K76.6 Portal hypertension; D68.9 Coagulation defect, unspecified; K21.9 Gastro-esophageal reflux disease without esophagitis; F10.10 Alcohol abuse, uncomplicated; F17.210 Nicotine dependence, cigarettes, uncomplicated; D64.9 Anemia, unspecified; K76.0 Fatty (change of) liver, not elsewhere classified; R74.0 Nonspecific elevation of levels of transaminase and lactic acid dehydrogenase [LDH]; F32.9 Major depressive disorder, single episode, unspecified; D69.6 Thrombocytopenia, unspecified; K31.89 Other diseases of stomach and duodenum; K57.90 Diverticulosis of intestine, part unspecified, without perforation or abscess without bleeding; K63.5 Polyp of colon; K64.8 Other hemorrhoids; K64.4 Residual hemorrhoidal skin tags; K76.9 Liver disease, unspecified
CPT/HCPCS: 36415; 36430; 36511; 71045-TC-FY; 71250-TC; 74177-TC; 74182-TC; 76705-TC; 76942-TC; 80053; 80074; 80307; 81003; 81015; 82042; 82105; 82140; 82150; 82272; 82378; 82607; 82728; 82746; 82945; 83036; 83540; 83550; 83615; 83735; 83986; 84100; 84157; 84439; 84443; 84466; 84481; 84484; 85025; 85027; 85384; 85610; 85730; 86301; 86850; 86900; 86901; 86922; 87045; 87046; 87070; 87075; 87102; 87116; 87205; 87206; 87210; 87324; 87449; 88108; 88305-TC; 89051; 93005; 93010; 93306-TC; 97116-GP; 97161-GP; 99284-25; J1644; J7030; P9038; P9058